=== PATIENT | female | born 1945 | race Caucasian/White ===

== ENCOUNTER → 2021-06-22 09:13 | Outpatient (BNVA) | payer MEDICARE, SELFPAY | PROVIDERS: Family Provider Nurse Practitioner Family; PCP Nurse Practitioner Family; Visit Provider Specialist | DX: H49.23 Sixth [abducent] nerve palsy, bilateral (principal) | CPT/HCPCS: 99205 ==

== ENCOUNTER 2021-06-22 10:55 | Outpatient (CLI) | payer MEDICARE, SELFPAY ==
[2021-06-25 23:13] LABS: Acetylcholine Receptor Binding <0.30 nmol/L
[2021-06-26 01:42] LABS: Acetylcholine Receptor Block <15 (<15)
[2021-07-01 17:38] LABS: Acetylcholine Recept Modulatin 4
== END 2021-06-22 10:56 | disposition home or self-care (01) ==
PROVIDERS: PCP Nurse Practitioner Family; Visit Provider Specialist
DX: G70.00 Myasthenia gravis without (acute) exacerbation (principal)
CPT/HCPCS: 83516; 83519

== ENCOUNTER 2021-07-06 16:26 | Outpatient (CLI) | payer MEDICARE, SELFPAY ==
--- NOTE | 2021-07-06 16:45 | MR_ITS ---
WS: [id number] MRI HEAD WITHOUT CONTRAST TECHNIQUE: Sagittal T1, T2 axial, T2 axial FLAIR, axial and coronal T1 images, axial susceptibility w eighted imaging, axial diffusion weighted images, and coronal T2 images were obtained. CLINICAL INFORMATION: G70.00 - Myasthenia gravis without (acute) exacerbation COMPARISON: None. FINDINGS: No evidence of restricted diffusion persistent. Minimal small vessel changes. Mild parenchymal volume loss. Normal posterior fossa. Normal vascular flow voids at the skull base. No extra-axial fluid col lections. No mass or mass effect. Mild mucosal thickening in the ethmoid air cells. Mastoid air cells well aerated. Mild orbital proptosis. Rectus muscles appear within normal limits. No significant rectus muscle thic kening. No hemosiderin on susceptibly weighted images. Normal optic chiasm and pituitary infundibulum . Temporal lobes formations are normal in appearance. Normal cavernous sinuses and Meckel's cave. MR/MR head wo con* [id number] IMPRESSION: 1. No evidence of restricted diffusion to suggest acute ischemia. 2. Minimal small vessel changes with mild parenchymal volume loss. 3. No hemosiderin on susceptibly weighted images. 4. Mild orbital proptosis. Rectus muscles appear within normal limits. 5. Normal optic chiasm and pituitary infundibulum.
== END 2021-07-06 16:27 | disposition home or self-care (01) ==
LOC: RADSHAW 16:27
PROVIDERS: PCP Nurse Practitioner Family; Visit Provider Specialist
DX: G70.00 Myasthenia gravis without (acute) exacerbation (principal)
CPT/HCPCS: 70551

== ENCOUNTER → 2021-07-26 08:32 | Outpatient (BNVA) | payer MEDICARE, SELFPAY | PROVIDERS: PCP Nurse Practitioner Family; Visit Provider Specialist | DX: H49.23 Sixth [abducent] nerve palsy, bilateral (principal) | CPT/HCPCS: 99214 ==

== ENCOUNTER 2021-07-26 10:14 | Outpatient (CLI) | payer MEDICARE, SELFPAY | END 2021-07-26 10:15 | disposition home or self-care (01) | PROVIDERS: PCP Nurse Practitioner Family; Visit Provider Specialist | DX: G70.00 Myasthenia gravis without (acute) exacerbation (principal) | CPT/HCPCS: 83519 ==

== ENCOUNTER 2025-04-04 07:15 | Inpatient (IN) | payer MEDICARE, SELFPAY ==
[2025-04-04] VITALS (15 sets, daily range): BP systolic 146–188; BP diastolic 77–112; PULSE 61–98; RESP 15–21; TEMP 36.4–36.8; O2SAT 88–98; BMI 33.7
--- OUTSIDE RECORDS SUMMARY | 2025-04-04 07:23 | XMS_ITS | Patient Health Record ---
Author Organization [facility] Address [address] [place] [address] Care Team Providers Care Vp Treasurer Name Role Phone [facility] Primary Care Provider [phone] [facility] Unavailable Unavailable Allergies No Known Allergies Results Component Value Reference Range Flag Notes CBC w\ Auto Diff [id number] Reviewed date:01/28/2025 04:46:54 PM Interpretation: Performing Lab: Notes/Report: Diagnosis Description: Essential (primary) hypertension WBC 3.7 4.5-11.0 X10'3 LOW RBC 4.28 4.00-5.20 X10'6 Hgb 12.7 12.0-16.0 G/DL Hct 40.9 36.0-46.0 % MCV 95.6 80.0-100.0 FL MCH 29.7 27.0-31.0 PG MCHC 31.1 31.0-37.0 G/DL Platelet 278 150-400 X10'3 RDW-SD 46.6 35.0-49.0 FL RDW-CV 13.2 12.2-15.6 % MPV 11.0 9.2-12.0 FL Neutro Auto% 39.5 40.0-70.0 % LOW Lymph Auto% 43.1 22.0-44.0 % [place] Auto% 11.4 3.0-7.0 % HI Eos Auto% 4.6 2.0-4.0 % HI Baso Auto% 1.1 0.0-1.0 % HI Imm Gran% .3 .0-.4 % Neutro Abs 1.45 .80-7.70 Absolute Neutrophil Count 1450 NA Lymph Abs 1.58 .10-4.10 [place] Abs .42 .20-1.00 Eos Abs .17 .00-.40 Baso Abs .04 .00-.20 Imm Gran Abs .01 .00-.10 NRBC# .00 .00-.20 X10'3 NRBC% .00 .00-.20 /100 int act WBC's Comprehensive Metabolic Pane l (CMP) 11625 Reviewed date:01/28/2025 04:47:17 PM Interpretation: Performing Lab: Notes/Report: Diagnosis Description: Essential (primary) hypertension Glucose Serum 90 71-110 MG/DL Testing p erformed at [facility], [address] [place] [address] [place] [address]. CLIA ID#: [id number] BUN 20 7-21 MG/DL Creat .64 .51-1.17 MG/DL K-klexbn-m-benzoquinone imine (NAPQI) is a metabolite of acetaminophen, NAPQI concentrations of apparoximately 10 mg/L correlation to toxic levels of acetaminophen demonstrates a greater than or equil to 10% change in results. NAPQI concentrations greater than this may lead to falsely depressed results for patient samples. Use of this assay is not recommended for patients undergoing treatment with phenindione, due to the potential for falsely depressed results. GFR 90.0 NA Calculation pe rformed from GFR calculator provided by the [employer]. Glomerular Filtration rate(GRF) is the best overall index of kidney function. Normal GFR varies according to age,sex, body size, and declines with age. The [employer] recommends using the CKD-EPI Creatinine Equation(2020) to estimate GFR. BUN/Creat Ratio 31.2 12.0-20.0 % HI Total Protein 6.5 5.8-8.0 G/DL Albumin 4.4 3.2-4.8 G/DL Globulin 2.1 2.3-3.5 G/DL LOW Alb/Glob 2.1 0.8-2.2 Calcium 8.9 8.7-10.4 MG/DL Sodium 144 136-145 MMOL/L Potassium 4.4 3.5-5.1 MMOL/L Chloride 107 98-107 MMOL/L CO2 31.7 20.0-31.0 MMOL/L HI Anion Gap 10 5-15 Alk Phos 92 46-116 Bili Total .6 .3-1.2 MG/DL Use of this assay is not recommended for patients undergoing treatment with eltrombopag due to the potential for falsely elevated results. AST/SGOT 26 15-37 UNIT/L ALT/SGPT 24 12-78 UNIT/L Osmo Serum,Calculated 300 280-300 MOSM/KG Hemoglobin A1c 21241 Reviewed date:01/28/2025 04:46:31 PM Interpretation: Performing Lab: Notes/Report: Diagnosis Description: Other care home (current) drug therapy Hgb A1c 5.4 3.8-6.4 % Interpretation Of Hgb A1c: 4.5-6.2 % nondiabetics. >7.0 % diabetics. EAG 108 NA Estimated Aver age Glucose(EAG). Lipid Panel Reflex DLDL 8004 1, 73191 Reviewed date:01/28/2025 04:47:03 PM Interpretation: Performing Lab: Notes/Report: Diagnosis Description: Mixed hyperlipidemia Trig 113 NA 10-14 yr 37-131 10-14 yr 32-125 5-9 yr 30-101 Desirable <150 Adults: >20yrs 0-4 yr 34-112 Classification Guidelines:Triglycerides 15-19 yr 39-132 Children: Male Very high >=500 0-4 yr 22-99 High 200-499 5-9 yr 32-105 Borderline High 150-199 15-19 yr 37-148 Children: Female Chol 172 <=200 MG/DL HDL 51 39-96 MG/DL Male: 5-9y 36-73 Reference Ranges:HDL >=20y 40-59 15-19y 30-63 10-14y 37-74 >=20y 40-59 Female: 10-14y 37-70 15-19y 35-74 5-9y 38-75 CH/HDL 3.4 0.0-4.9 RATIO LDL 99 0-130 MG/DL LDL result is inaccurate , if Trig is >400 mg/dl. See DLDL result. Thyroid Stimulating Hormone (TSH) 00251 Reviewed date:01/28/2025 04:46:19 PM Interpretation: Performing Lab: Notes/Report: Diagnosis Description: Encounter for screening for other suspected endocrine disorder TSH 1.136 .358-3.740 MlU/ML Reason For Referral No Information Medications Medication SIG (Take, Route, Frequency, Duration) Notes Start Date End Date Status Zinc 50 MG Tablet 1 tablet Orally Once a day Not-Taking Biotin 5 MG Capsule 1 capsule Orally Onc e a day Active Meclizine HCl 25 MG Tablet 1/2 to 1 tab Orally every 12 hrs prn dizzy; Duration: 30 days Not-Taking Olmesartan Medoxomil 40 MG Tablet TAKE ONE TABLET BY MOUTH ONCE a DAY; Duration: 90 days Active Wpaavoip-Oehfixwen-XH 3.5-78399-8 Suspension 4 drops into affected ear Otic Three times a day; Duration: 10 days Not-Takin g Probiotic 1-250 BILLION-MG Capsule as directed Orally Act soren Escitalopram Oxalate 10 MG Tablet 1 tablet Orally Once a day for anxiety; Duration: 30 days 03/13/2025 Active Triamterene-HCTZ 37.5-25 MG Tablet 1/2 to 1 tab Orally once a day day prn swelling; Duration: 90 days Active Magnesium 250 MG Tablet 1 tablet with a meal Orally Once a day Active Pantoprazole Sodium 40 mg Tablet Delayed Release TAKE ONE TABLET BY MOUTH ONCE DAILY; Duration: 90 Active Atorvastatin Calcium 20 mg Tablet TAKE ONE TABLET BY MOUTH ONCE DAILY; Duration: 90 Active PreserVision AREDS 2 - Capsule as directed Orally twice a day Active Aspirin Adult Low Dose 81 MG Tablet Delayed Release 1 tablet Orally Once a day Active Immunizations Vaccine Route Administration Date Status Comme nts Tdap IM Intramuscular 07/04/2024 Administered suppli ed by vaxcare/pt tolerated well/instructed to wait 20 min Social History Tobacco Use: Social History Observation Description Date Details (start date - stop date) Never Smoker NA - NA Social History Depression Screening Social Info Question Answer Notes depression screening findings Findings Negative (0 -4) PHQ-9 Little interest or p susie in doing things Not at all Feeling down, depressed, or hopeless Not at all Trouble falling or staying asleep, or sleeping t oo much Not at all Feeling tired or having little energy Not at all Poor appetite or overeating Not at all Feeling bad about yourself, or that you are a failure, or have let yourself or your family down Not at all Trouble concentrating on thi ngs, such as reading the newspaper or watching television Not at all Moving or speaking so slowly that other people could have noticed. Or the opposite ? being so fidgety or restless that you have been moving around a lot more than usual Not at all Thoughts that you would be b elis off , or of hurting yourself in some way Not at all Total Score 0 Drugs/Alcohol: Social Info Question Answer Notes Alcohol Screen (Audit-C) Did you have a drink containing alcohol in the past year? No Points 0 Interpretation Negative Tobacco Use: Social Info Question Answer Notes xTobacco Use/Smoking Are you a nonsmoker Section Notes: 12-12-22 PHQ9 Depression screen completed 07/04/2024 score 0 Depression screen completed 01/25/2024 score 0 Depression screen completed 07/04/2024 score 0 Depression screen completed 07/04/2024 score 0, PHQ9 02/27/2025 12-12-22 PHQ9 12-12-22 PHQ9 Problems Problem Type SNOMED Code ICD Code Onset Dates Problem Status W/U Status Risk Notes Problem Mixed hyperlipidemia (437499731) Mixed hyperlipidemia (E78.2) Active confirmed Problem Essential hypertension (64550724) Essential (primary) hypertension (I10) Active confirmed Problem Gastro-esophageal reflux disease without esophagitis (204863576) Gastro-esophageal reflux disease without esophagitis (K21.9) Active confirmed Problem Sinusitis (30412836) Sinusitis (J32.9) Active confirmed Problem Thyroid disorder screening (832899007) Thyroid disorder screening (Z13.29) Active confirmed Problem Leukopenia (64298607) Leukopenia (D72.819) Active confirmed Problem Osteoarthritis (552369484) Osteoarthritis (M19.90) Active confirmed Problem Gastroesophageal reflux disease (053826499) GERD (gastroesophageal reflux disease) (K21.9) Active confirmed Problem Adult health examination (185621748) Encounter for annual wellness visit (AWV) in Medicare patient (Z00.00) Active confirmed Vital Signs Heart Rate 75 /min 02/27/2025 Temperature 97.7 degrees Fahrenheit 02/27/2025 Respiratory Rate 20 /min 02/27/2025 Height-cm 167.64 cm 02/27/2025 Oximetry 98 % 02/27/2025 Blood pressure diastolic 85 mm Hg 02/27/2025 Weight-kg 80.74 kg 02/27/2025 Height 66 in 02/27/2025 Blood pressure systolic 162 mm Hg 02/27/2025 Weight 178 lbs 02/27/2025 BMI 28.73 kg/m2 02/27/2025 Encounters Encounter Location Date Provider Diagnosis [facility] [address] [address] [facility] for [facility] annual wellness exam Z00.00 ; Need for tetanus, diphtheria, and acellular pertussis (Tdap) vaccine Z23 ; Osteoarthritis M19.90 ; Finger pain, right M79.644 ; Lumbar pain M54.50 ; Essential (primary) hypertension I10 ; Encounter for immunization Z23 and Encounter for administration of vaccine Z23 [facility] [address] [address] 01/27/2025 [facility] Essential (primary) hypertension I10 ; Mixed hyperlipidemia E78.2 ; Thyroid disorder screening Z13.29 and Drug therapy continued Z79.899 [facility] [address] [address] 02/27/2025 [facility] Leukopenia D72.819 ; Essential (primary) hypertension I10 and Depression screen Z13.31 [facility] [address] [address] 03/13/2025 [facility] Assessments Encounter Date Diagnosis (ICD Code) Assessment Notes Treatment Notes Treatment Clinical Notes Section Notes 07/04/2024 Encounter for Medicare annual wellness exam (ICD-10 - Z00.00) see eval Diagnosis reconciliation performed and verified as listed in Assessments. 07/04/2024 Need for tetanus, diphtheria, and acellular pertussis (Tdap) vaccine (ICD-10 - Z23) tdap Diagnosis reconciliation performed and verified as listed in Assessments. 01/27/2025 Mixed hyperlipidemia (ICD-10 - E78.2) continue meds lipids 01/27/2025 Essential (primary) hypertension (ICD-10 - I10) olmesartan 40 mg monitor bp cbc cmp 02/27/2025 Leukopenia (ICD-10 - D72.819) recheck 2 weeks 02/27/2025 Essential (primary) hypertension (ICD-10 - I10) continue meds 02/27/2025 Depression screen (ICD-10 - Z13.31) 01/27/2025 Thyroid disorder screening (ICD-10 - Z13.29) tsh 07/04/2024 Osteoarthritis (ICD-10 - M19.90) ibuprofen tylenol Diagnosis reconciliation performed and verified as listed in Assessments. 07/04/2024 Finger pain, right (ICD-10 - M79.644) Diagnosis reconciliation performed and verified as listed in Assessments. 01/27/2025 Drug therapy continued (ICD-10 - Z79.899) ha1c 07/04/2024 Lumbar pain (ICD-10 - M54.50) tramadol Diagnosis reconciliation performed and verified as listed in Assessments. 07/04/2024 Essential (primary) hypertension (ICD-10 - I10) Diagnosis reconciliation performed and verified as listed in Assessments. 07/04/2024 Encounter for immunization (ICD-10 - Z23) [facility] Diagnosis reconciliation performed and verified as listed in Assessments. 07/04/2024 Encounter for administration of vaccine (ICD-10 - Z23) Diagnosis reconciliation performed and verified as listed in Assessments. 07/04/2024 Other Questions asked and answered; discharged to home. Give Flu vaccine as directed per provider Diagnosis reconciliation performed and verified as listed in Assessments. 01/27/2025 Other Questions asked and answered; discharged to home. Venipuncture: Performed by: Karolina JOHN Attempts: x1 Location:LAC Needle gauge: 21g Patient tolerated well. 02/27/2025 Other Questions asked and answered; discharged to home. Plan Of Treatment Next Appt Details Provider Name:Suzy Johnson, 05/02/2025 10:20:00 AM, [address] [place] [address], [id number], Insurance Providers Payer Name Payer Address Payer Phone Subscriber Number Group Number Insured Name Patient Relationship to Insured Coverage Start Date Coverage End Date [facility] Medicare Advantage - PPO [address] [address] [place] [address] [id number] Adelaida Thurman Self - patient is the insured Medications Administered Medication Instructions Date of Administration Dosage Notes dexAMETHasone 12/12/2022 8 mg [id number] 423-00 Patient tolerated well Rocephin 12/12/2022 1 g [id number] Patient tolerated well. Medical (General) History Medical History History ICD Code GERD High Blood Pressure Surgical History Surgery Date(Month/Year) cataract removal x2 corneal transplant x2
--- NOTE | 2025-04-04 07:24 | XR_ITS ---
WS: [id number] XR nasal bones min 3V [id number] REASON FOR EXAM: Trauma FINDINGS: The inferior nasal spine is intact. No displacement or fracture of the superior nasal spine identified. XR/XR nasal bones min 3V 43927 IMPRESSION: No acute fracture identified.
--- NOTE | 2025-04-04 07:30 | W.ED.HEATRA ---
HPI - Head Injury General: Chief complaint: Head Injury Stated complaint: fall, nose injury Time Seen by Provider: 04/04/25 07:17 History of Present Illness: 71-year-old female presents emergency room after a fall at home. Patient states she had gotten out of bed to go to the restroom she got dizzy you go. She has pain and deformity of her left wrist and left fourth finger. She has pain in her neck. She told EMS feel like if she moves her neck she was going to pass out. She denies any history of previous stroke or AL. No history of any valvular disease disease or history hypertension. Did not take any of her medications today. She has no chest pain at this time. Associated symptoms: Deny neck pain Related Data Home Medications ?Medication ?Instructions ?Recorded ?Confirmed Saccharomyces boulardii 250 mg 250 mg PO BID 06/22/21 04/04/25 capsule (Daily Probiotic (S. boulardii)) aspirin 81 mg tablet,delayed 81 mg PO DAILY 06/22/21 04/04/25 release (Adult Low Dose Aspirin) atorvastatin 20 mg tablet 20 mg PO DAILY 06/22/21 04/04/25 biotin 5 mg capsule 5 mg PO DAILY 06/22/21 04/04/25 vitamins A,C,C-lzfu-fmedqw 4,296 1 cap PO BID 06/22/21 04/04/25 mcg-226 mg-90 mg capsule (PreserVision AREDS) escitalopram oxalate 10 mg tablet 10 mg PO DAILY 04/04/25 04/04/25 olmesartan 40 mg tablet 40 mg PO DAILY 04/04/25 04/04/25 pantoprazole 40 mg tablet,delayed 40 mg PO DAILY 04/04/25 04/04/25 release Allergies Allergy/AdvReac Type Severity Reaction Status Date / Time No Known Allergies Allergy Verified 07/26/21 09:11 Review of Systems Const: Denies: fever(s) or chills Card: Denies: chest pain Resp: Denies: dyspnea GI: Denies: abdominal pain : Denies: dysuria, urinary frequency or urinary urgency Musc: Denies: neck pain or back pain Skin/Breast: Denies: rash PFSH ED PFSH: Medical History (Updated 04/04/25 @ 15:00 by Benji Kennedy DO) History of myasthenia gravis Surgical History (Updated 04/04/25 @ 12:35 by Dax Lopez MD) Corneal transplant status Social History (Updated 04/04/25 @ 12:35 by Dax Lopez MD) Smoking and tobacco/nicotine status: never used tobacco/nicotine Alcohol intake: never Substance/Drug Use: never Physical Exam Const: COMMON NORMALS: no acute distress GENERAL APPEARANCE: cooperative and comfortable ORIENTATION/CONSCIOUSNESS: Yes awake, Yes oriented to person, Yes oriented to place and Yes oriented to time HENMT: COMMON NORMALS: normocephalic and hearing grossly normal bilaterally HEAD & SCALP: normocephalic OTHER: Abrasion on the bridge of the nose no deformity Resp: COMMON NORMALS: normal respiratory effort, No retractions, No use of accessory muscles and clear to auscultation bilaterally AUSCULTATION: clear to auscultation bilaterally Cardio: COMMON NORMALS: regular rate, regular rhythm and No murmurs present (Cardio) RATE: regular rate RHYTHM: regular rhythm GI: COMMON NORMALS: Soft to palpation and No hepatosplenomegaly present AUSCULTATION: Yes normoactive bowel sounds PALPATION: Yes Soft to palpation, No Tenderness to palpation present (GI), No Guarding due to palpation present (GI) and Yes No hepatosplenomegaly present Extremity: COMMON NORMALS: normal to inspection, capillary refill normal, no clubbing, cyanosis or edema, no calf tenderness and no pedal edema OTHER: Deformity of the left wrist left fourth finger. There is a ring in place on the left fourth finger. There is increased swelling with the ring is causing some constriction Neuro: SENSORIUM/ORIENTATION: Yes oriented to person, Yes oriented to place and Yes oriented to time Skin: COMMON NORMALS: no rashes or lesions noted GENERAL SKIN EXAM: no rashes or lesions noted Procedures Orthopedic Joint Reduction Joint #1: Side: left Joint Reduction Location: finger Technique used: traction/counter-traction Post-reduction neuro exam: intact Post-reduction vascular: intact Post Reduction X-Ray Obtained: Yes Post Reduction X-Ray Results: reduced Additional Comments: Harshad tape fingers for support postreduction films shows a possible minuscule avulsion fracture per radiology. Course Vital Signs: Vital signs: Vital Signs Temperature 97.6 F 04/04/25 12:19 Pulse Rate 76 04/04/25 12:19 Respiratory Rate 17 04/04/25 12:19 Blood Pressure 165/112 04/04/25 12:19 Pulse Oximetry 96 04/04/25 12:19 Oxygen Delivery Me thod Room Air 04/04/25 13:38 MDM - Head Injury Medcial Decision Making CT head was negative there is nondisplaced nasal bone fracture reduce the finger dislocation there is a minuscule possible avulsion fracture. We are setting patient up to further evaluate her and she had another syncopal episode just from sitting up. She also noted to be a little bit hypoxic at times. CT of the chest is negative CTA head and neck did not show any significant stenosis. On auscultation she did not have any murmur heard in the heart. Will go ahead and admit the patient for syncope discussed with hospitalist orders written. Troponin so far negative EKG does not show any acute changes Medical Records I reviewed the patient's medical records. Lab Data I reviewed the patient's lab results. 04/04/25 10:21 04/04/25 10:21 Radiology Impressions Nasal Bones X-Ray 04/04/25 07:24 IMPRESSION: No acute fracture identified. Cervical Spine CT 04/04/25 07:34 IMPRESSION: No evidence of acute fracture or dislocation. Wrist X-Ray 04/04/25 07:34 IMPRESSION: Probable left wrist fracture as above. Head CT 04/04/25 07:35 IMPRESSION: 1. No evidence of intracranial hemorrhage or mass effect. 2. Tiny amount of irregularity anterior inferior nasal bones with soft tissue edema. Nondisplaced RIGHT nasal bone fracture. Recommend correlation for area of trauma. 3. No acute intracranial findings. Hand X-Ray 04/04/25 08:58 IMPRESSION: Shinto of normal alignment. Minuscule mild avulsion injury. Head/Neck CTA 04/04/25 08:58 IMPRESSION: 1. No significant cervical ICA stenosis. 2. Vertebral arteries are patent. Tiny basilar artery with anterior dominant circulation. Normal vascularity to the SPECIAL CRIMES INVESTIGATOR territory. 3. Persistent LEFT [employer]IM[employer] INVESTIGATOR. 4. No evidence of intracranial flow-limiting stenosis. Chest CTA 04/04/25 10:43 IMPRESSION: No pulmonary emboli. No other acute pulmonary parenchymal or pleural abnormality. Chest X-Ray 04/04/25 10:46 IMPRESSION: No acute lung or pleural abnormality. Masslike presumed mediastinal abnormality as above. Laboratory Results WBC 7.48 10^3/uL (3.29-11.43) 04/04/25 10:21 RBC 4.38 10^6/uL (3.85-5.65) 04/04/25 10:21 Hgb 13.10 g/dL (11.27-16.99) 04/04/25 10:21 Hct 40.1 % (36-47) 04/04/25 10:21 MCV 91.6 fl (85-98) 04/04/25 10:21 MCH 29.9 pg (27-33) 04/04/25 10:21 MCHC 32.7 g/dL (30-55) 04/04/25 10:21 RDW 12.7 % (12.1-15.1) 04/04/25 10:21 Plt Count 234 10^3/cmm (157-399) 04/04/25 10:21 MPV 10.4 fL (7.4-10.4) 04/04/25 10:21 Neut % (Auto) 71.1 % 04/04/25 10:21 Lymph % (Auto) 21.7 % 04/04/25 10:21 [place] % (Auto) 5.7 % 04/04/25 10:21 Eos % (Auto) 0.5 % 04/04/25 10:21 Baso % (Auto) 0.5 % 04/04/25 10:21 Neut # (Auto) 5.31 10^3/uL (1.8-7.7) 04/04/25 10:21 Lymph # (Auto) 1.6 10^3/uL (0.8-4.8) 04/04/25 10:21 [place] # (Auto) 0.4 10^3/uL (0.2-0.9) 04/04/25 10:21 Eos # (Auto) 0.0 10^3/uL (0.0-0.8) 04/04/25 10:21 Baso # (Auto) 0.0 10^3/uL (0.0-0.1) 04/04/25 10:21 Nucleated RBC % (auto) 0 % 04/04/25 10:21 Nucleated RBCs # 0.0 /100WBC 04/04/25 10:21 Sodium 141 mmol/L (136-145) 04/04/25 10:21 Potassium 4.2 mmol/L (3.5-5.1) 04/04/25 10:21 Chloride 101 mmol/L (98-107) 04/04/25 10:21 Carbon Dioxide 27 mmol/L (22-29) 04/04/25 10:21 Anion Gap 17.2 (5-19) 04/04/25 10:21 BUN 18 mg/dL (8-23) 04/04/25 10:21 Creatinine 0.5 mg/dL (0.5-0.9) 04/04/25 10:21 GFR Calculation Not Reportable 04/04/25 10:21 Glucose 112 mg/dL (65-115) 04/04/25 10:21 Estimat Average Glucose 126 04/04/25 10:21 Hemoglobin A1c 6.0 % (4.0-6.0) 04/04/25 10:21 Calculated Osmolality 295 mOsm/kg (285-295) 04/04/25 10:21 Lactic Acid 1.1 mmol/L (0.5-2.2) 04/04/25 10:21 Calcium 9.2 mg/dL (8.5-10.5) 04/04/25 10:21 Total Bilirubin 0.6 mg/dL (0.15-1.2) 04/04/25 10:21 AST 25 U/L (0-32) 04/04/25 10:21 ALT 23 U/L (0-33) 04/04/25 10:21 Alkaline Phosphatase 102 U/L (35-105) 04/04/25 10:21 Troponin T Baseline < 6 ng/L (0-10) 04/04/25 10:21 Total Protein 6.7 g/dL (6.6-8.7) 04/04/25 10:21 Albumin 4.2 g/dL (3.5-5.2) 04/04/25 10:21 Globulin 2.5 g/dL (1.3-4.6) 04/04/25 10:21 Triglycerides 114 mg/dL (0-150) 04/04/25 10:21 Cholesterol 197 mg/dL (0-200) 04/04/25 10:21 LDL Cholesterol, Calc 125 mg/dL (50-129) 04/04/25 10:21 HDL Cholesterol 49 mg/dL (60-100) L 04/04/25 10:21 LDL/HDL Ratio 2.55 RATIO (0.00-3.22) 04/04/25 10:21 Cholesterol/HDL Ratio 4.02 mg/dL (0.0-4.40) 04/04/25 10:21 Procalcitonin 0.04 ng/mL (0-0.5) 04/04/25 10:21 TSH 1.78 uIU/mL (0.27-4.20) 04/04/25 10:21 All radiology interpretation(s) finalized by discharge EKG Data EKG 1: Interpretation: 718 2025-07-01. EKG sinus rhythm rate of 65 though acute EKG changes noted no ST elevation. MD 168 QTc 425. No previous EKG to compare EKG 2: Interpretation: EKG 04/04/2025 1312 sinus rhythm no acute ST changes noted rate of 80 MD interval 185 QTc 440 no change from EKG earlier same day Discharge Plan Discharge Patient Disposition: Admitted As Inpatient Admit Provider: Dax Lopez Clinical Impression: Syncopal episodes Condition: Stable Coding Level of Care Code ED Nailer Operator for Chg Patsy
--- NOTE | 2025-04-04 07:34 | CT_ITS ---
WS: [id number] CT CERVICAL TRAUMA TECHNIQUE: Noncontrast CT of the cervical spine with coronal and sagittal reformatted images. CLINICAL INFORMATION: Trauma COMPARISON: None. DLP: 1391.[address] scans at [facility] use at least one of these dose optimization techniques: automated exposure control; mA and/or kV adjustment per patient size (includes targeted exams where dose is matched to clinical indication); or iterative reconstruction. FINDINGS: Straightening of the normal cervical lordosis. Normal craniocervical junction. Normal C1-C2 articulation. Dens is normal in appearance. Normal occipital condyles. No high-grade spinal canal narrowing. Normal C1 ring. No evidence of acute fracture or dislocation. Normal prevertebral soft tissues. Mastoids air cells are well aerated. CT/CT cervical spin wo con* [id number] IMPRESSION: No evidence of acute fracture or dislocation.
--- NOTE | 2025-04-04 07:34 | XR_ITS ---
WS: [email or web address] XR wrist LT min 3V* [id number] REASON FOR EXAM: Trauma FINDINGS: Probable occult nondisplaced transverse fracture through the distal radial metaphysis with extension into the medial radial articular joint space. XR/XR wrist LT min 3V* [id number] IMPRESSION: Probable left wrist fracture as above.
--- NOTE | 2025-04-04 07:34 | XR_ITS ---
WS: [email or web address] XR hand LT min 3V* [id number] REASON FOR EXAM: Trauma FINDINGS: Dislocation of the proximal interphalangeal joint of the fourth finger. Middle phalange displaced dorsally. No definite fracture. XR/XR hand LT min 3V* [id number] IMPRESSION: Fourth finger dislocation as above.
--- NOTE | 2025-04-04 07:35 | CT_ITS ---
WS: [id number] CT HEAD TECHNIQUE: Noncontrast CT of the head obtained from the skullbase to the vertex. CLINICAL INFORMATION: Trauma COMPARISON: None. DLP: 1391.[address] scans at [facility] use at least one of these dose optimization techniques: automated exposure control; mA and/or kV adjustment per patient size (includes targeted exams where dose is matched to clinical indication); or iterative reconstruction. FINDINGS: No evidence of intracranial hemorrhage or mass effect. Ventricular system and basal cisterns are patent. Mild small vessel changes with mild parenchymal volume loss. No extra-axial fluid collections. No evidence of mass or mass effect. Normal cullen-white differentiation. Tiny amount of irregularity with suspected nondisplaced fractures anterior inferior nasal bones. Nondisplaced RIGHT nasal bone fracture. Irregularity LEFT inferior nasal bones. Recommend correlation with area of trauma. There is soft tissue edema in this area. Paranasal sinuses and mastoid air cells are well aerated. Soft tissue edema overlying the inferior frontal calvarium. CT/CT head wo con* [id number] IMPRESSION: 1. No evidence of intracranial hemorrhage or mass effect. 2. Tiny amount of irregularity anterior inferior nasal bones with soft tissue edema. Nondisplaced RIGHT nasal bone fracture. Recommend correlation for area o f trauma. 3. No acute intracranial findings.
--- NOTE | 2025-04-04 08:33 | PC.NURSE ---
Used the ring cutters to remove the wedding band from patient's L ring finger.
--- NOTE | 2025-04-04 08:58 | XR_ITS ---
WS: [email or web address] XR hand LT min 3V* [id number] REASON FOR EXAM: Postreduction FINDINGS: Normal anatomic alignment has been restored to the PIP joint of the fourth finger. Minuscule bone fragment avulsion from the head of the fourth metacarpal and base of the fourth proximal phalanx. XR/XR hand LT min 3V* [id number] IMPRESSION: Shinto of normal alignment. Minuscule mild avulsion injury.
--- NOTE | 2025-04-04 08:58 | CT_ITS ---
WS: [id number] CTA HEAD AND NECK TECHNIQUE: Contrast enhanced CTA of the head and neck with coronal and sagittal reformatted images and maximum intensity projection (MIP) images. NASCET criteria utilized. CLINICAL INFORMATION: Syncope COMPARISON: None. DLP: 431.[address] scans at [facility] use at least one of these dose optimization techniques: automated exposure control; mA and/or kV adjustment per patient size (includes targeted exams where dose is matched to clinical indication); or iterative reconstruction. FINDINGS: RIGHT: No significant RIGHT ICA stenosis. Retropharyngeal course of the RIGHT cervical ICA. RIGHT ICA is patent to the skull base. LEFT: Tortuous proximal LEFT common carotid artery which is patent. No significant LEFT ICA stenosis. LEFT ICA is patent to the skull base. Codominant and patent vertebral arteries bilaterally. Proximal basilar artery is tiny but patent. Anterior dominant circulation. Persistent LEFT LOCAL DELIVERY DRIVER. Robust RIGHT posterior communicating artery with tiny RIGHT P1 segment. Normal vascularity to the LOCAL DELIVERY DRIVER territory bilaterally. Both ICAs are patent at the skull base. Minimal cavernous carotid calcification. Normal vascularity to the MELIA territory with azygos MELIA. Hypoplastic LEFT A1 segment. Normal vascularity to the MCA territory bilaterally. No evidence of proximal flow-limiting stenosis. Lung apices are well aerated. Aortic arch calcification. Proximal subclavian arteries are patent. CT/CT angio headneck* [id number] IMPRESSION: 1. No significant cervical ICA stenosis. 2. Vertebral arteries are patent. Tiny basilar artery with anterior dominant c irculation. Normal vascularity to the LOCAL DELIVERY DRIVER territory. 3. Persistent LEFT LOCAL DELIVERY DRIVER. 4. No evidence of intracranial flow-limiting stenosis.
[2025-04-04] MEDS: ondansetron 2 mg/ML SDV 2 mL 4 MG IVP ×2 (10:20→19:33)
--- NOTE | 2025-04-04 10:29 | ECG_ITS ---
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 Measurements Intervals [place] Rate: 65 P: 57 SC: 168 QRS: -24 QRSD: 100 T: 22 QT: 406 QTc: 425 Interpretive Statements SINUS RHYTHM LOW QRS VOLTAGE IN PRECORDIAL LEADS [QRS DEFLECTION < 1.0 mV IN CHEST LEADS] POSSIBLE ANTERIOR MYOCARDIAL INFARCTION , OF INDETERMINATE AGE [30 ms Q WAVE IN V3/V4, OR R < 0.2 mV IN V4] INTERPRETATION BASED ON A DEFAULT AGE OF 40 YEARS No previous ECG available for comparison Electronically Signed On 04-05-2025 14:10:55 CDT by Ashely Garcia M.D. [id number]
[2025-04-04 10:42] LABS: Hematocrit 40.1 % (36-47); Hemoglobin 13.10 g/dL (11.27-16.99); Mean Corpuscular HGB Conc 32.7 g/dL (30-55); Mean Corpuscular Hemoglobin 29.9 pg (27-33); Mean Corpuscular Volume 91.6 fl (85-98); Nucleated Red Blood Cells % 0 %; Platelet Count 234 10^3/cmm (157-399); Red Blood Count 4.38 10^6/uL (3.85-5.65); White Blood Count 7.48 10^3/uL (3.29-11.43)
--- NOTE | 2025-04-04 10:43 | CT_ITS ---
WS: [email or web address] CT angio chest PE protcl [id number] REASON FOR EXAM: Syncope hypoxia TECHNIQUE: Coronal and sagittal 2-D and MIP reformations. IV CONTRAST ADMINISTERED: 100 mL of Omnipaque 350: After the intravenous administration of contrast multiple thin section axial images were obtained through the chest. Coronal and sagittal reconstructions. TOTAL EXAM DLP: 388.[address] scans at [facility] use at least one of these dose optimization techniques: automated exposure control; mA and/or kV adjustment per patient size (includes targeted exams where dose is matched to clinical indication); or iterative reconstruction. FINDINGS: No pulmonary emboli. Moderate tortuosity and ectasia of the thoracic aorta with calcified plaque. Maximum diameter of the ascending aorta 3.5 cm. Maximum diameter of the descending thoracic aorta 2.5 cm. Hiatal hernia. Combination of the hiatal hernia and the tortuous ectatic thoracic aorta at the esophageal hiatus explains the density seen on the chest x-ray. Small old reactive nodes in both hilar regions and the mediastinum. No significant adenopathy. No lung mass or significant lung nodule. Areas of atelectasis in both lower lobes. No definite acute pulmonary parenchymal abnormality. No pleural effusion. Old compression deformity of T6 with moderate dorsal kyphosis of the thoracic spine. Significant degenerative spondylosis in the mid and lower thoracic spine. CT/CT angio chest PE protcl [id number] IMPRESSION: No pulmonary emboli. No other acute pulmonary parenchymal or pleural abnormality.
--- NOTE | 2025-04-04 10:46 | XR_ITS ---
WS: [email or web address] XR chest 1V portable [id number] REASON FOR EXAM: Low O2 sat syncope FINDINGS: Moderate tortuosity and ectasia of the thoracic aorta. The heart is mildly enlarged. There is no acute pulmonary parenchymal or pleural abnormality. There is a masslike density projected over the lower mediastinum of unknown etiology. This should be resolved with the scheduled CT scan of the chest. XR/XR chest 1V portable [id number] IMPRESSION: No acute lung or pleural abnormality. Masslike presumed mediastinal abnormality as above.
[2025-04-04 11:03] LABS: Alanine Aminotransferase 23 U/L (0-33); Albumin Level 4.2 g/dL (3.5-5.2); Alkaline Phosphatase 102 U/L (35-105); Anion Gap 17.2 (5-19); Aspartate Amino Transferase 25 U/L (0-32); Blood Urea Nitrogen 18 mg/dL (8-23); Calcium 9.2 mg/dL (8.5-10.5); Carbon Dioxide 27 mmol/L (22-29); Chloride 101 mmol/L (98-107); Creatinine Clr Calc Pharmacy 53.6958; Globulin 2.5 g/dL (1.3-4.6); Glucose 112 mg/dL (65-115); Osmolality Calculated 295 mOsm/kg (285-295); Potassium 4.2 mmol/L (3.5-5.1); Sodium 141 mmol/L (136-145); Total Protein 6.7 g/dL (6.6-8.7)
[2025-04-04 11:04] LABS: Troponin(5th) Baseline < 6 ng/L (0-10)
[2025-04-04] MEDS: iohexol 350 mg/mL 500 mL Btl (per mL) IV ×2 (11:56→11:57)
--- NOTE | 2025-04-04 12:24 | PM.HP ---
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 Patient tells me that she lives at home with her , who has Alzheimer's disease, and she takes care of him, she tells me that she has a history of benign positional vertigo, she has received the Bob maneuver in the past, but it is really not bothering her recently she has noted recently that she has been more dizzy upon changing position, but nothing so significant that she had to seek medical attention for. She went to bed last night, when she woke up this morning, as she was getting up out of bed, she passed out completely and she fell through the door, landing on her face, she remembers being on the floor, but does not remember the episode well,, she denies any facial droop, no slurring her words, no focal weakness, does report dizziness upon changing her head position, no numbness or tingling, no lack of sensation of her feet, her last known well normal was about 10 PM when she went to bed, here in the emergency room, when nursing staff got her up to the side of the bed, she passed out again, her initial head CT has been within normal limits, she does tell me that recently her primary care provider has been increasing the dose of her olmesartan, from 10 mg up to 40 mg, she has been recently started on Lexapro Review of Systems Const: Denies: fever(s) or chills Card: Reports: lightheadedness and syncope; Denies: chest pain Resp: Denies: dyspnea GI: Denies: abdominal pain : Denies: flank pain Musc: Denies: neck pain Skin/Breast: Denies: rash Neuro: Denies: headache(s) Medications/Allergies Home Medications ?Medication ?Instructions ?Recorded ?Confirmed ?Last Taken ?Type Saccharomyces boulardii 250 mg 250 mg PO BID 06/22/21 04/04/25 04/03/25 History capsule (Daily Probiotic (S. boulardii)) aspirin 81 mg tablet,delayed 81 mg PO DAILY 06/22/21 04/04/25 04/03/25 History release (Adult Low Dose Aspirin) atorvastatin 20 mg tablet 20 mg PO DAILY 06/22/21 04/04/25 04/03/25 History biotin 5 mg capsule 5 mg PO DAILY 06/22/21 04/04/25 04/03/25 History vitamins A,C,C-fdnn-uwuhri 4,296 1 cap PO BID 06/22/21 04/04/25 04/03/25 History mcg-226 mg-90 mg capsule (PreserVision AREDS) escitalopram oxalate 10 mg tablet 10 mg PO DAILY 04/04/25 04/04/25 04/03/25 History olmesartan 40 mg tablet 40 mg PO DAILY 04/04/25 04/04/25 04/03/25 History pantoprazole 40 mg tablet,delayed 40 mg PO DAILY 04/04/25 04/04/25 04/03/25 History release Allergies Allergy/AdvReac Type Severity Reaction Status Date / Time No Known Allergies Allergy Verified 07/26/21 09:11 PFSH Acute PFSH: Medical History (Updated 04/04/25 @ 12:34 by Dax Lopez MD) History of myasthenia gravis Surgical History (Updated 04/04/25 @ 12:35 by Dax Lopez MD) Corneal transplant status Social History (Updated 04/04/25 @ 12:35 by Dax Lopez MD) Smoking and tobacco/nicotine status: never used tobacco/nicotine Alcohol intake: never Substance/Drug Use: never Vitals/I&O/Wt Last Vital Signs Temp 97.8 F 04/04/25 07:16 Pulse 79 04/04/25 11:19 Resp 18 04/04/25 07:16 BP 146/77 04/04/25 11:19 Pulse Ox 93 04/04/25 11:19 O2 Del Method Room Air 04/04/25 10:30 Weight last 48 hrs Weight 78.471 kg Physical Exam Const: COMMON NORMALS: no acute distress and patient oriented x3 ORIENTATION/CONSCIOUSNESS: Yes awake, Yes oriented to person and Yes oriented to place; not oriented to time Eye: COMMON NORMALS: Equal, round and reactive pupils present and EOMs intact bilaterally OTHER: No eye drooping, no recent weakness, no difficulty swallowing Resp: COMMON NORMALS: normal respiratory effort, No retractions, No use of accessory muscles and clear to auscultation bilaterally AUSCULTATION: clear to auscultation bilaterally Cardio: COMMON NORMALS: no JVD, regular rate, regular rhythm, S1 normal heart sound present and S2 normal heart sound present RATE: regular rate RHYTHM: regular rhythm HEART SOUNDS: S1 normal heart sound present and S2 normal heart sound present GI: COMMON NORMALS: Normal to inspection, nondistended, normoactive bowel sounds present, Soft to palpation and non-tender Extremity: COMMON NORMALS: no pedal edema Neuro: COMMON NORMALS: patient oriented x3, CN's II-XII intact bilaterally, moves all extremities and no focal motor deficits Psych: COMMON NORMALS: mental status grossly normal Data 04/04/25 10:21 04/04/25 10:21 A&P Assessment and plan 1. Syncopal episodes: Plan: Syncopal episode CT head - CT/CT head wo con* [id number] IMPRESSION: 1. No evidence of intracranial hemorrhage or mass effect. 2. Tiny amount of irregularity anterior inferior nasal bones with soft tissue edema. Nondisplaced RIGHT nasal bone fracture. Recommend correlation for area of trauma. 3. No acute intracranial findings. - CT head and neck is pending -Cervical neck CT no acute findings - CT angiogram of the chest negative for pulmonary emboli -Differential includes orthostatic hypotension, polypharmacy, posterior circulation stroke, cardiac etiology, myasthenia crisis? Further workup needed - Plan - Aspirin, statin - Allow for permissive hypertension - IV fluids - CRP, Pro-Jefry, TSH - Due to persistent syncopal episodes keep on bedrest - Will check orthostatic vitals once safe -Telemetry monitoring, serial EKGs, serial troponins, cardiac echo - Full code - Lovenox for DVT prophylaxis Nondisplaced RIGHT nasal bone fracture - Conservative intervention Fourth finger dislocation, s/p reduction, by ER provider, currently ceasar ruff - X-ray shows minuscule mild avulsion injury, will discuss with orthopedic service - She will need to follow-up with orthopedic service History of myasthenia gravis?, Not on Mestinon - Will have to clarify with the patient why she is not taking Mestinon PDMP PDMP Reviewed: Not Reviewed Attestations Medical Necessity Statement*: This is a 79-year-old female who requires inpatient admission, greater than 2 midnights, for syncopal episode Diagnoses Syncopal episodes R55
[2025-04-04] MEDS: pantoprazole 40 mg SDV IVP (12:48)
[2025-04-04 12:50] LABS: Estmated Average Glucose 126; Hemoglobin A1C 6.0 % (4.0-6.0)
[2025-04-04 12:57] LABS: Procalcitonin 0.04 ng/mL (0-0.5); Thyroid Stimulating Hormone 1.78 uIU/mL (0.27-4.20)
[2025-04-04 13:08] LABS: Cholesterol 197 mg/dL (0-200); HDL Cholesterol 49 mg/dL (60-100); Triglycerides 114 mg/dL (0-150)
--- NOTE | 2025-04-04 13:12 | ECG_ITS ---
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
[2025-04-04 13:20] LABS: Lactic Sepsis W/Reflex 1.1 mmol/L (0.5-2.2)
[2025-04-04 13:39] LABS: Troponin 5 2HR 7.05 ng/L (0-10); Troponin 5 2HR Delta 1.05001 ABS# (0-10)
[2025-04-04 16:11] LABS: Glucose Urine UA Negative (Normal); Nitrate Urine Positive (Negative)
--- NOTE | 2025-04-04 16:12 | ECG_ITS ---
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
[2025-04-04 16:16] LABS: Add Urine Microscopic? YES
[2025-04-04] MEDS: metoclopramide 5 mg/mL SDV 2 mL IVP ×2 (16:52→23:35)
[2025-04-04 17:00] LABS: Specific Gravity, Urine 1.031 (1.005-1.030)
[2025-04-04 17:15] LABS: Troponin 5 6HR 11.18 ng/L (0-10); Troponin 5 6HR Delta 5.18001 ng/L (0-12)
[2025-04-04] MEDS: morphine 4 mg/mL SDV 1 mL 2 MG IVP ×2 (19:33→23:35)
--- NOTE | 2025-04-04 19:46 | ECG_ITS ---
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 Measurements Intervals [place] Rate: 130 P: -12 DC: 118 QRS: -19 QRSD: 102 T: 35 QT: 308 QTc: 454 Interpretive Statements SINUS TACHYCARDIA WITH SHORT DC INTERVAL POSSIBLE ANTERIOR MYOCARDIAL INFARCTION , PROBABLY OLD [30 ms Q WAVE IN V3/V4, OR R < 0.2 mV IN V4] POSSIBLE INFERIOR MYOCARDIAL INFARCTION , PROBABLY OLD [30 ms Q WAVE IN II/aVF] ABNORMAL RHYTHM ECG Compared to ECG 04/04/2025 16:12:48 Short DC interval now present Myocardial infarct finding now present Sinus rhythm no longer present Electronically Signed On 04-05-2025 00:16:05 CDT by Ashely Garcia M.D. [email or web address] [id number]
[2025-04-04] MEDS: cefTRIAXone 1,000 mg SDV 1000 MG IVP (20:16)
[2025-04-04 20:37] LABS: Lipase 28 U/L (13-60)
[2025-04-05] VITALS (9 sets, daily range): BP systolic 113–142; BP diastolic 65–79; PULSE 73–87; RESP 15–26; TEMP 36.4–37; O2SAT 94–96
[2025-04-05 04:09] LABS: Hematocrit 37.7 % (36-47); Hemoglobin 12.40 g/dL (11.27-16.99); Mean Corpuscular HGB Conc 32.9 g/dL (30-55); Mean Corpuscular Hemoglobin 30.8 pg (27-33); Mean Corpuscular Volume 93.5 fl (85-98); Nucleated Red Blood Cells % 0 %; Platelet Count 233 10^3/cmm (157-399); Red Blood Count 4.03 10^6/uL (3.85-5.65); White Blood Count 10.33 10^3/uL (3.29-11.43)
[2025-04-05 04:33] LABS: Alanine Aminotransferase 19 U/L (0-33); Albumin Level 3.8 g/dL (3.5-5.2); Alkaline Phosphatase 88 U/L (35-105); Anion Gap 15.7 (5-19); Aspartate Amino Transferase 21 U/L (0-32); Blood Urea Nitrogen 17 mg/dL (8-23); Calcium 8.4 mg/dL (8.5-10.5); Carbon Dioxide 24 mmol/L (22-29); Chloride 104 mmol/L (98-107); Creatinine Clr Calc Pharmacy 53.6958; Globulin 2.5 g/dL (1.3-4.6); Glucose 130 mg/dL (65-115); Magnesium 1.9 mg/dL (1.7-2.3); Osmolality Calculated 293 mOsm/kg (285-295); Potassium 3.7 mmol/L (3.5-5.1); Sodium 140 mmol/L (136-145); Total Protein 6.3 g/dL (6.6-8.7)
[2025-04-05] MEDS: morphine 4 mg/mL SDV 1 mL 2 MG IVP (06:08)
[2025-04-05] MEDS: ondansetron 2 mg/ML SDV 2 mL 4 MG IVP (06:08)
--- NOTE | 2025-04-05 13:19 | P.PN_ITS ---
Subjective 2 Subjective: Patient was seen this morning, currently alert oriented x 3, following all commands, she does report dizziness upon changing head position, no nausea, no vomiting, no lightheadedness, no dizziness, she did have episodes of tachycardia during the night, denies a history of atrial fibrillation, did discuss her UTI, Vitals/I&O/Wt Last Vital Signs Temp 97.9 F 04/05/25 12:00 Pulse 73 04/05/25 12:00 Resp 18 04/05/25 12:00 BP 124/65 04/05/25 12:00 Pulse Ox 95 04/05/25 12:00 O2 Del Method Nasal Cannula 04/05/25 04:00 O2 Flow Rate 2 04/05/25 04:00 04/04/25 04/05/25 04/05/25 22:59 06:59 14:59 Intake Total 60 / 60 973.75 / 1033.75 240 / 240 Output Total 1050 / 1050 300 / 1350 Balance -990 / -990 673.75 / -316.25 240 / 240 Weight last 48 hrs Weight 82.01 kg Weight 78.471 kg Weight 78.471 kg Physical Exam 2 Const: COMMON NORMALS: no acute distress and patient oriented x3 Eye: COMMON NORMALS: Equal, round and reactive pupils present PUPIL: Yes Equal, round and reactive pupils present Resp: COMMON NORMALS: normal respiratory effort, No retractions, No use of accessory muscles and clear to auscultation bilaterally AUSCULTATION: clear to auscultation bilaterally Cardio: COMMON NORMALS: regular rate, regular rhythm, S1 normal heart sound present and S2 normal heart sound present RATE: regular rate RHYTHM: r egular rhythm HEART SOUNDS: S1 normal heart sound present and S2 normal heart sound present GI: COMMON NORMALS: Normal to inspection, nondistended, normoactive bowel sounds present and non-tender Extremity: COMMON NORMALS: no pedal edema Neuro: COMMON NORMALS: patient oriented x3, CN's II-XII intact bilaterally and moves all extremities Psych: COMMON NORMALS: mental status grossly normal Data 04/05/25 03:30 04/05/25 03:30 Micro: Microbiology 04/04/25 14:07 Urine Culture - Preliminary Urine,Clean Catch Gram Negative Rods A&P Assessment and plan 1. Syncopal episodes: 2. UTI (urinary tract infection): 3. Atrial fibrillation: Plan: Syncopal episode CT head - CT/CT head wo con* [id number] IMPRESSION: 1. No evidence of intracranial hemorrhage or mass effect. 2. Tiny amount of irregularity anterior inferior nasal bones with soft tissue edema. Nondisplaced RIGHT nasal bone fracture. Recommend correlation for area of trauma. 3. No acute intracranial findings. - CT head and neck no acute findings -Cervical neck CT no acute findings - CT angiogram of the chest negative for pulmonary emboli -Differential includes orthostatic hypotension, polypharmacy, posterior circulation stroke, cardiac etiology, myasthenia crisis? Further workup needed -With patient's episode of atrial fibrillation, dizziness, concerns for posterior circulation stroke is high # However she does have features associate with benign positional vertigo - Plan - Aspirin, statin - Allow for permissive hypertension - IV fluids - CRP, Pro-Jefry, TSH within normal limits - Ambulate with physical therapy, take off bedrest check orthostatic vitals - Check orthostatic vitals -Telemetry monitoring, serial EKGs, serial troponins, cardiac echo - Full code - Lovenox for DVT prophylaxis UTI, IV Rocephin Atrial fibrillation - Reviewed telemetry, patient had a couple episodes of sinus tachycardia during the night, one of the episodes appear to be atrial fibrillation - Her EKG show sinus tachycardia - Heart rates as high as 150 - High suspicious for A-fib - Given her dizziness concerns for possible posterior circulation stroke, associate with atrial fibrillation - For now we will start on therapeutic anticoagulant therapy - Will consider starting her on a beta-ingrid based upon her orthostatic vitals - Continue telemetry monitoring Benign positional vertigo - Has a history of benign positional vertigo - She does report dizziness upon changing head position, I cannot discern any saccadic eye movements - Show her dizziness does have a component of benign positional vertigo - Will have PT evaluate her Nondisplaced RIGHT nasal bone fracture - Conservative intervention Hiatal hernia History of tortuous ectatic thoracic aorta, mass diameter ascending aorta 2.5 cm Fourth finger dislocation, s/p reduction, by ER provider, currently ceasar ruff - X-ray shows minuscule mild avulsion injury, will discuss with orthopedic service - She will need to follow-up with orthopedic service History of myasthenia gravis?, Not on Mestinon - Will have to clarify with the patient why she is not taking Mestinon PDMP PDMP Reviewed: Not Reviewed Attestations 2 Medical Necessity Statement*: Patient requires hospitalization for syncopal episode, atrial fibrillation, UTI, benign positional vertigo Diagnoses Syncopal episodes R55 UTI (urinary tract infection) N39.0 Atrial fibrillation I48.91
--- NOTE | 2025-04-05 15:41 | PC.NURSE ---
During transfer patient turned pallor while trying to go from the chair to the bed. Patient barely tolerated sitting up in the chair today.
--- NOTE | 2025-04-05 17:45 | PC.PT ---
PT eval attempted. Patient near syncope this afternoon. Unsafe for transfer and ambulation currently. Will monitor.
[2025-04-05] MEDS: cefTRIAXone 1,000 mg SDV 1000 MG IVP (21:29)
[2025-04-06] VITALS (7 sets, daily range): BP systolic 128–162; BP diastolic 64–91; PULSE 72–94; RESP 17–29; TEMP 36.4–37.2; O2SAT 89–96
[2025-04-06 03:04] LABS: Hematocrit 36.1 % (36-47); Hemoglobin 11.00 g/dL (11.27-16.99); Mean Corpuscular HGB Conc 30.5 g/dL (30-55); Mean Corpuscular Hemoglobin 29.9 pg (27-33); Mean Corpuscular Volume 98.1 fl (85-98); Nucleated Red Blood Cells % 0 %; Platelet Count 198 10^3/cmm (157-399); Red Blood Count 3.68 10^6/uL (3.85-5.65); White Blood Count 5.80 10^3/uL (3.29-11.43)
[2025-04-06 03:26] LABS: Alanine Aminotransferase 23 U/L (0-33); Albumin Level 3.2 g/dL (3.5-5.2); Alkaline Phosphatase 86 U/L (35-105); Blood Urea Nitrogen 13 mg/dL (8-23); Calcium 8.1 mg/dL (8.5-10.5); Carbon Dioxide 25 mmol/L (22-29); Chloride 108 mmol/L (98-107); Creatinine Clr Calc Pharmacy 54.9910; Globulin 2.1 g/dL (1.3-4.6); Glucose 98 mg/dL (65-115); Magnesium 2.1 mg/dL (1.7-2.3); Osmolality Calculated 294 mOsm/kg (285-295); Sodium 142 mmol/L (136-145); Total Protein 5.3 g/dL (6.6-8.7)
[2025-04-06 03:36] LABS: Anion Gap 13.6 (5-19); Aspartate Amino Transferase 25 U/L (0-32); Potassium 4.6 mmol/L (3.5-5.1)
--- NOTE | 2025-04-06 12:52 | USCV_ITS ---
Adelaida Jain Age: 79 Gender: F : 1945 Exam Date: 04/06/2025 07:35 Ordering Phys: Dax oLpez MD Technologist: Tiburcio Lal Exam Location: [facility] [place] Indication: tachycardia BP: 132 / 70 HR: 73 Rhythm: Sinus Technical Quality: Adequate MEASUREMENTS (Male / Female) Normal Values 2D ECHO LV Diastolic Diameter PLAX 5.1 cm 4.2 - 5.9 / 3.9 - 5.3 cm IVS Diastolic Thickness 1.0 cm 0.6 - 1.0 / 0.6 - 0.9 cm IVS Systolic Thickness 1.4 cm LVPW Diastolic Thickness 1.3 cm 0.6 - 1.0 / 0.6 - 0.9 cm LVPW Systolic Thickness 2.4 cm LVOT Diameter 2.0 cm LV Ejection Fraction 2D Teich 58.6 % LV Ejection Fraction MOD 4C 65.9 % LV Ejection Fraction MOD 2C 73.6 % LV Ejection Fraction 2C AL 74.0 % LA Diameter 3.0 cm RA Systolic Volume 4C AL 32.5 ml RA Systolic Volume 4C MOD 32.6 ml LA Sys Volume AL 43.6 cm cubed LA Sys Volume Index AL 22.9 cm cubed/m squared Aorta at Sinotubular Diameter 2.4 cm IVC Diameter 1.9 cm M-MODE LA Ao Ratio MM 1.4 AV Cusp Separation MM 1.8 cm DOPPLER AV Peak Velocity 141.7 cm/s LVOT Peak Velocity 89.0 cm/s AV Area Cont Eq vti 1.7 cm squared AV Area Cont Eq pk 2.0 cm squared MV Peak Velocity 101.0 cm/s MV Area PHT 4.8 cm squared Mitral E to A Ratio 0.8 TV Peak Velocity 303.3 cm/s TR Peak Velocity 333.0 cm/s TR Peak Gradient 44.4 mmHg TR Mean Velocity 281.0 cm/s TR Mean Gradient 32.9 mmHg TR Velocity Time Integral 108.3 cm PV Peak Velocity 93.7 cm/s RV Ejection Time 0.3 s FINDINGS Left Ventricle Normal left ventricular size and systolic function, EF 70%.no regional wall motion abnormalities. Grade I/IV diastolic dysfunction (abnormal relaxation filling pattern), normal to mildly elevated filling pressures. Right Ventricle The right ventricle is normal in size and function. Right Atrium The right atrium is normal in size. Left Atrium Normal left atrial size. Mitral Valve Trace mitral valve regurgitation. Aortic Valve Trace aortic valve regurgitation. Tricuspid Valve fMild tricuspid valve regurgitation. Estimated pulmonary artery peak systolic pressure 39 mmHg Pulmonic Valve Mild pulmonary valve regurgitation. Pericardium No pericardial effusion. Aorta Normal ascending aorta dimension. IVC The inferior vena cava appears normal. CONCLUSIONS Normal left ventricular size and systolic function, EF 70%. No regional wall motion abnormalities. Grade I/IV diastolic dysfunction (abnormal relaxation filling pattern), normal to mildly elevated filling pressures. Trace mitral valve regurgitation. Trace aortic valve regurgitation. FMild tricuspid valve regurgitation. Estimated pulmonary artery peak systolic pressure 39 mmHg. Mild pulmonary valve regurgitation. There is no pericardial effusion. There are no intracardiac masses. No similar previous studies are available for comparison . Dr Ashely Garcia MD FAC (Electronically Signed) Final Date: 06 April 2025 09:31 S
[2025-04-06] MEDS: pantoprazole 40 mg SDV IVP (13:01)
--- NOTE | 2025-04-06 15:20 | P.PN_ITS ---
Subjective 2 Subjective: Patient was seen this morning, currently alert oriented x 3, following all commands she reports dizziness upon changing head positions, we discussed my suspicions for atrial fibrillation, Vitals/I&O/Wt Last Vital Signs Temp 97.6 F 04/06/25 12:00 Pulse 72 04/06/25 12:50 Resp 29 H 04/06/25 12:00 BP 141/64 04/06/25 12:50 Pulse Ox 95 04/06/25 12:00 O2 Del Method Nasal Cannula 04/06/25 04:00 O2 Flow Rate 2 04/06/25 04:00 04/06/25 04/06/25 04/06/25 06:59 14:59 22:59 Intake Total 948.75 / 2548.75 480 / 480 Output Total 600 / 1150 Balance 348.75 / 1398.75 480 / 480 Weight last 48 hrs Weight 82.508 kg Weight 82.01 kg Physical Exam 2 Const: COMMON NORMALS: no acute distress and patient oriented x3 Eye: COMMON NORMALS: Equal, round and reactive pupils present and EOMs intact bilaterally PUPIL: Yes Equal, round and reactive pupils present Resp: COMMON NORMALS: normal respiratory effort, No retractions, No use of accessory muscles and clear to auscultation bilaterally AUSCULTATION: clear to auscultation bilaterally Cardio: COMMON NORMALS: regular rate, regular rhythm, S1 normal heart sound present and S2 normal heart sound present RATE: regular rate RHYTHM: r egular rhythm HEART SOUNDS: S1 normal heart sound present and S2 normal heart sound present GI: COMMON NORMALS: Normal to inspection, nondistended, normoactive bowel sounds present and non-tender Extremity: COMMON NORMALS: no pedal edema Neuro: COMMON NORMALS: patient oriented x3, CN's II-XII intact bilaterally and moves all extremities Psych: COMMON NORMALS: mental status grossly normal Data 04/06/25 01:55 04/06/25 01:55 Micro: Microbiology 04/04/25 14:07 Urine Culture - Final Urine,Clean Catch Escherichia coli A&P Assessment and plan 1. Syncopal episodes: 2. UTI (urinary tract infection): 3. Atrial fibrillation: Plan: Syncopal episode CT head - CT/CT head wo con* [id number] IMPRESSION: 1. No evidence of intracranial hemorrhage or mass effect. 2. Tiny amount of irregularity anterior inferior nasal bones with soft tissue edema. Nondisplaced RIGHT nasal bone fracture. Recommend correlation for area of trauma. 3. No acute intracranial findings. - CT head and neck no acute findings -Cervical neck CT no acute findings - CT angiogram of the chest negative for pulmonary emboli -Differential includes orthostatic hypotension, polypharmacy, posterior circulation stroke, cardiac etiology, myasthenia crisis? Further workup needed -With patient's episode of atrial fibrillation, dizziness, concerns for posterior circulation stroke is high # However she does have features associate with benign positional vertigo - Plan - Aspirin, statin - Allow for permissive hypertension - IV fluids completed - CRP, Pro-Jefry, TSH within normal limits - Ambulate with physical therapy, take off bedrest check orthostatic vitals - Check orthostatic vitals -Telemetry monitoring, serial EKGs, serial troponins, cardiac echo - Full code - Lovenox for DVT prophylaxis UTI, IV Rocephin Atrial fibrillation - Reviewed telemetry, patient had a couple episodes of sinus tachycardia during the night, one of the episodes appear to be atrial fibrillation - Her EKG show sinus tachycardia - Heart rates as high as 150 - High suspicious for A-fib - Given her dizziness concerns for possible posterior circulation stroke, associate with atrial fibrillation - For now we will start on therapeutic anticoagulant therapy - Will consider starting her on a beta-ingrid based upon her orthostatic vitals - Continue telemetry monitoring Benign positional vertigo - Has a history of benign positional vertigo - She does report dizziness upon changing head position, I cannot discern any saccadic eye movements - Show her dizziness does have a component of benign positional vertigo - Will have PT evaluate her Nondisplaced RIGHT nasal bone fracture - Conservative intervention Hiatal hernia History of tortuous ectatic thoracic aorta, 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91
[2025-04-06] MEDS: cefTRIAXone 1,000 mg SDV 1000 MG IVP (20:00)
[2025-04-07] VITALS: BP 154/80; BP 164/93; BP 176/84; PULSE 75; PULSE 79; PULSE 86; RESP 18; TEMP 36.6; O2SAT 97
[2025-04-07 03:53] VITALS: BP 156/89; PULSE 96; RESP 15; TEMP 36.6; O2SAT 94
[2025-04-07 05:17] LABS: Hematocrit 33.9 % (36-47); Hemoglobin 10.80 g/dL (11.27-16.99); Mean Corpuscular HGB Conc 31.9 g/dL (30-55); Mean Corpuscular Hemoglobin 30.0 pg (27-33); Mean Corpuscular Volume 94.2 fl (85-98); Nucleated Red Blood Cells % 0 %; Platelet Count 179 10^3/cmm (157-399); Red Blood Count 3.60 10^6/uL (3.85-5.65); White Blood Count 4.51 10^3/uL (3.29-11.43)
[2025-04-07 05:34] LABS: Alanine Aminotransferase 36 U/L (0-33); Albumin Level 3.2 g/dL (3.5-5.2); Alkaline Phosphatase 87 U/L (35-105); Anion Gap 11.9 (5-19); Aspartate Amino Transferase 34 U/L (0-32); Blood Urea Nitrogen 10 mg/dL (8-23); Calcium 8.1 mg/dL (8.5-10.5); Carbon Dioxide 27 mmol/L (22-29); Chloride 108 mmol/L (98-107); Creatinine Clr Calc Pharmacy 55.6216; Globulin 2.5 g/dL (1.3-4.6); Glucose 95 mg/dL (65-115); Magnesium 1.9 mg/dL (1.7-2.3); Osmolality Calculated 295 mOsm/kg (285-295); Potassium 3.9 mmol/L (3.5-5.1); Sodium 143 mmol/L (136-145); Total Protein 5.7 g/dL (6.6-8.7)
[2025-04-07 08:00] VITALS: BP 176/63; PULSE 71; RESP 16; TEMP 36.8; O2SAT 95
--- NOTE | 2025-04-07 08:05 | PC.SOCIAL ---
IMM Update Pg. 2 of IMM updated and reviewed with patient, who verbalized understanding. Copy provided.
--- NOTE | 2025-04-07 11:22 | P.DS_ITS ---
Discharge Providers Date of Admission: 04/04/25 10:28 Date of Discharge: April 07, 2025 Attending Provider at Admission: Dax Lopez MD Attending Provider at Discharge: Dax Lopez MD Primary Care Provider: Suzy Johnson APN Diagnoses at Discharge Discharge Diagnosis 1. Syncopal episodes: 2. UTI (urinary tract infection): 3. 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 Patient tells me that she lives at home with her , who has Alzheimer's disease, and she takes care of him, she tells me that she has a history of benign positional vertigo, she has received the Bob maneuver in the past, but it is really not bothering her recently she has noted recently that she has been more dizzy upon changing position, but nothing so significant that she had to seek medical attention for. She went to bed last night, when she woke up this morning, as she was getting up out of bed, she passed out completely and she fell through the door, landing on her face, she remembers being on the floor, but does not remember the episode well,, she denies any facial droop, no slurring her words, no focal weakness, does report dizziness upon changing her head position, no numbness or tingling, no lack of sensation of her feet, her last known well normal was about 10 PM when she went to bed, here in the emergency room, when nursing staff got her up to the side of the bed, she passed out again, her initial head CT has been within normal limits, she does tell me that recently her primary care provider has been increasing the dose of her olmesartan, from 10 mg up to 40 mg, she has been recently started on Lexapro Patient presented to [facility] for syncopal episode, highly suspicious for posterior circulation stroke with episode of atrial fibrillation during hospitalization. During her hospitalization she had an episode of atrial fibrillation reviewed on telemetry monitoring, with patient's complaints of dizziness, patient's fall, highly suspicious for posterior circulation stroke. She was monitored as inpatient, received metoprolol, Eliquis, tolerated it well, no evidence of bleeding. No recurrent episodes of atrial fibrillation, discharged with event monitor with close follow-up with cardiology as outpatient. For concern for posterior circulation stroke, discharged with close follow-up with neurology patient, aspirin, statin, Eliquis, beta-ingrid was advised if she were to have any stroke symptoms immediately call 911. For her UTI she completed antibiotic therapy. She was found to have a fourth finger dislocation s/p reduction, spoke with orthopedic service, recommended continued medical management. For benign positional vertigo, evaluated by PT OT during hospitalization, discharged with follow-up with primary care provider as outpatient. For a history of myasthenia gravis? Patient did have a a history of myasthenia gravis, is not on Mestinon as outpatient. For her nasal bone fracture, conservative management, follow-up with ENT Physical Exam Const: COMMON NORMALS: no acute distress and patient oriented x3 Resp: COMMON NORMALS: normal respiratory effort, No retractions, No use of accessory muscles and clear to auscultation bilaterally AUSCULTATION: clear to auscultation bilaterally Cardio: COMMON NORMALS: regular rate, regular rhythm, S1 normal heart sound present and S2 normal heart sound present RATE: regular rate RHYTHM: regular rhythm HEART SOUNDS: S1 normal heart sound present and S2 normal heart sound present GI: COMMON NORMALS: Normal to inspection, nondistended, normoactive bowel sounds present and non-tender Extremity: COMMON NORMALS: no pedal edema Neuro: COMMON NORMALS: patient oriented x3 Psych: COMMON NORMALS: mental status grossly normal Discharge Data Studies Completed and Pending Completed Studies During Hospitalization Category Date Time Status CT angio chest PE protcl [id number] Stat Cat Scan 04/04/25 10:[address] cervical spin wo con* [id number] Stat Cat Scan 04/04/25 07:[address] head wo con* [id number] Stat Cat Scan 04/04/25 07:35 Completed CTA head neck [CT angio headneck* [id number]] Stat Cat Scan 04/04/25 08:58 Completed XR chest 1V portable [id number] Stat Exams 04/04/25 10:46 Completed XR hand LT min 3V* [id number] Stat Exams 04/04/25 07:34 Completed XR hand LT min 3V* [id number] Stat Exams 04/04/25 08:58 Completed XR nasal bones min 3V [id number] Stat Exams 04/04/25 07:24 Completed XR wrist LT min 3V* [id number] Stat Exams 04/04/25 07:34 Completed CV. echo complete* [id number] Routine Ultrasound 04/06/25 12:52 Completed Radiology Impressions Nasal Bones X-Ray 04/04/25 07:24 IMPRESSION: No acute fracture identified. Cervical Spine CT 04/04/25 07:34 IMPRESSION: No evidence of acute fracture or dislocation. Wrist X-Ray 04/04/25 07:34 IMPRESSION: Probable left wrist fracture as above. Head CT 04/04/25 07:35 IMPRESSION: 1. No evidence of intracranial hemorrhage or mass effect. 2. Tiny amount of irregularity anterior inferior nasal bones with soft tissue edema. Nondisplaced RIGHT nasal bone fracture. Recommend correlation for area of trauma. 3. No acute intracranial findings. Hand X-Ray 04/04/25 08:58 IMPRESSION: Pentecostal of normal alignment. Minuscule mild avulsion injury. Head/Neck CTA 04/04/25 08:58 IMPRESSION: 1. No significant cervical ICA stenosis. 2. Vertebral arteries are patent. Tiny basilar artery with anterior dominant circulation. Normal vascularity to the AUXILIARY POWER EQUIPMENT OPERATOR territory. 3. Persistent LEFT AUXILIARY POWER EQUIPMENT OPERATOR. 4. No evidence of intracranial flow-limiting stenosis. Chest CTA 04/04/25 10:43 IMPRESSION: No pulmonary emboli. No other acute pulmonary parenchymal or pleural abnormality. Chest X-Ray 04/04/25 10:46 IMPRESSION: No acute lung or pleural abnormality. Masslike presumed mediastinal abnormality as above. Laboratory Results WBC 4.51 10^3/uL (3.29-11.43) 04/07/25 05:07 RBC 3.60 10^6/uL (3.85-5.65) L 04/07/25 05:07 Hgb 10.80 g/dL (11.27-16.99) L 04/07/25 05:07 Hct 33.9 % (36-47) L 04/07/25 05:07 MCV 94.2 fl (85-98) 04/07/25 05:07 MCH 30.0 pg (27-33) 04/07/25 05:07 MCHC 31.9 g/dL (30-55) 04/07/25 05:07 RDW 12.8 % (12.1-15.1) 04/07/25 05:07 Plt Count 179 10^3/cmm (157-399) 04/07/25 05:07 MPV 10.1 fL (7.4-10.4) 04/07/25 05:07 Neut % (Auto) 46.6 % 04/07/25 05:07 Lymph % (Auto) 39.2 % 04/07/25 05:07 Casey % (Auto) 9.1 % 04/07/25 05:07 Eos % (Auto) 4.2 % 04/07/25 05:07 Baso % (Auto) 0.7 % 04/07/25 05:07 Neut # (Auto) 2.10 10^3/uL (1.8-7.7) 04/07/25 05:07 Lymph # (Auto) 1.8 10^3/uL (0.8-4.8) 04/07/25 05:07 Casey # (Auto) 0.4 10^3/uL (0.2-0.9) 04/07/25 05:07 Eos # (Auto) 0.2 10^3/uL (0.0-0.8) 04/07/25 05:07 Baso # (Auto) 0.0 10^3/uL (0.0-0.1) 04/07/25 05:07 Nucleated RBC % (auto) 0 % 04/07/25 05:07 Nucleated RBCs # 0.0 /100WBC 04/07/25 05:07 Sodium 143 mmol/L (136-145) 04/07/25 05:07 Potassium 3.9 mmol/L (3.5-5.1) 04/07/25 05:07 Chloride 108 mmol/L (98-107) H 04/07/25 05:07 Carbon Dioxide 27 mmol/L (22-29) 04/07/25 05:07 Anion Gap 11.9 (5-19) 04/07/25 05:07 BUN 10 mg/dL (8-23) 04/07/25 05:07 Creatinine 0.5 mg/dL (0.5-0.9) 04/07/25 05:07 GFR Calculation Not Reportable 04/07/25 05:07 Glucose 95 mg/dL (65-115) 04/07/25 05:07 Estimat Average Glucose 126 04/04/25 10:21 Hemoglobin A1c 6.0 % (4.0-6.0) 04/04/25 10:21 Calculated Osmolality 295 mOsm/kg (285-295) 04/07/25 05:07 Lactic Acid 1.1 mmol/L (0.5-2.2) 04/04/25 10:21 Calcium 8.1 mg/dL (8.5-10.5) L 04/07/25 05:07 Phosphorus 2.7 mg/dL (2.5-4.5) 04/07/25 05:07 Magnesium 1.9 mg/dL (1.7-2.3) 04/07/25 05:07 Total Bilirubin 0.4 mg/dL (0.15-1.2) 04/07/25 05:07 AST 34 U/L (0-32) H 04/07/25 05:07 ALT 36 U/L (0-33) H 04/07/25 05:07 Alkaline Phosphatase 87 U/L (35-105) 04/07/25 05:07 Troponin T Baseline < 6 ng/L (0-10) 04/04/25 10:21 Troponin T 120 Minute 7.05 ng/L (0-10) 04/04/25 13:12 Delta Troponin T 1.40245 ABS# (0-10) 04/04/25 13:12 Troponin T Hi Sens 6Hr 11.18 ng/L (0-10) H 04/04/25 16:10 Troponin T Hi Sens 6Hr Delta 5.46228 ng/L (0-12) 04/04/25 16:10 Total Protein 5.7 g/dL (6.6-8.7) L 04/07/25 05:07 Albumin 3.2 g/dL (3.5-5.2) L 04/07/25 05:07 Globulin 2.5 g/dL (1.3-4.6) 04/07/25 05:07 Triglycerides 114 mg/dL (0-150) 04/04/25 10:21 Cholesterol 197 mg/dL (0-200) 04/04/25 10:21 LDL Cholesterol, Calc 125 mg/dL (50-129) 04/04/25 10:21 HDL Cholesterol 49 mg/dL (60-100) L 04/04/25 10:21 LDL/HDL Ratio 2.55 RATIO (0.00-3.22) 04/04/25 10:21 Cholesterol/HDL Ratio 4.02 mg/dL (0.0-4.40) 04/04/25 10:21 Lipase 28 U/L (13-60) 04/04/25 16:10 Procalcitonin 0.04 ng/mL (0-0.5) 04/04/25 10:21 TSH 1.78 uIU/mL (0.27-4.20) 04/04/25 10:21 Urine Color Yellow (Yellow) 04/04/25 14:07 Urine Appearance Clear (CLEAR) 04/04/25 14:07 Urine pH 7.5 (5-7) 04/04/25 14:07 Ur Specific Hustler 1.031 (1.005-1.030) H 04/04/25 14:07 Urine Protein Negative (Negative) 04/04/25 14:07 Urine Glucose (UA) Negative (Normal) 04/04/25 14:07 Urine Ketones Negative (Negative) 04/04/25 14:07 Urine Blood Negative (Negative) 04/04/25 14:07 Urine Nitrate Positive (Negative) A 04/04/25 14:07 Urine Bilirubin Negative (Negative) 04/04/25 14:07 Urine Urobilinogen 1.0 mg/dL (Negative) 04/04/25 14:07 Ur Leukocyte Esterase Negative (Negative) 04/04/25 14:07 Urine RBC 0-2 /hpf (0-2) 04/04/25 14:07 Urine WBC 0-5 /hpf (0-5) 04/04/25 14:07 Ur Squamous Epith Cells 0-5 /hpf (0-5) 04/04/25 14:07 Amorphous Sediment Not Reportable 04/04/25 14:07 Urine Bacteria 4+ /hpf (NONE) H 04/04/25 14:07 Hyaline Casts 0.40 /lpf 04/04/25 14:07 Vitals Last Vital Signs Temp 98.3 F 04/07/25 08:00 Pulse 71 04/07/25 08:00 Resp 16 04/07/25 08:00 BP 176/63 04/07/25 08:00 Pulse Ox 95 04/07/25 08:00 O2 Del Method Nasal Cannula 04/07/25 08:00 O2 Flow Rate 2 04/07/25 08:00 Discharge Plan Discharge Patient Disposition: Home Condition: Stable Prescriptions: New metoprolol tartrate 25 mg Tablet 12.5 mg PO BID@0900,2100 30 Days Qty: 30 0RF Eliquis 5 mg tablet 5 mg PO BID 30 Days Qty: 60 0RF cefdinir 300 mg capsule 300 mg PO BID 5 Days Qty: 10 0RF Continued atorvastatin 20 mg tablet 20 mg PO DAILY PreserVision AREDS [id number] capsule 1 cap PO BID aspirin [Adult Low Dose Aspirin] 81 mg tablet,delayed release (DR/EC) 81 mg PO DAILY Saccharomyces boulardii [Daily Probiotic (S. boulardii)] 250 mg capsule 250 mg PO BID biotin 5 mg capsule 5 mg PO DAILY pantoprazole 40 mg tablet,delayed release (DR/EC) 40 mg PO DAILY escitalopram oxalate 10 mg tablet 10 mg PO DAILY Discontinued olmesartan 40 mg tablet 40 mg PO DAILY Discharge Order = DC NOW: Discharge Order (Routine); Ordered 04/07/25 Ordered By: Dax Lopez Referrals: Pb Forbes MD [Physician, Neurology] - 04/22/25 10:00 am Arthur Reilly MD [Physician, Ear, Nose, Throat] - 04/14/25 4:45 pm Referral Note: nasal bone fracture Jami Reyes MD [Physician, Orthopedics] - 04/09/25 3:30 pm Kamran Ashton MD [Physician, Cardiology] - 04/15/25 1:00 pm Johnson,MATEUSZ Almonte [Primary Care Provider, Nurse Practitioner] - 04/11/25 10:00 am Discharge Diet: Cardiac Discharge Activity: Resume usual activity Patient Instructions: Metoprolol (By mouth) (Lopressor, Toprol XL), Cefdinir (By mouth) (Omnicef), Apixaban (By mouth) (Eliquis), A-fib (Atrial Fibrillation) (DC), Urinary Tract Infection in Women (GEN), Syncope (DC), Opioid Safety, Patient Portal & Vitaliy Instructions Activity Restrictions/Additional Instructions: - If you have any recurrent dizzy episodes please go to the emergency room - Please follow-up with cardiology - I have discharged on Eliquis for atrial fibrillation, if you develop any bloody or black stools please go to emergency room - If you have any significant falls go to emergency room - Follow-up with neurology - For nasal bone fracture please follow-up with Dr. Perry - Fourth finger dislocation follow-up with Dr. Navarrete Discharge Attestations Time Spent in Discharge Care*: greater than 30 min Quality Metrics Clinical Quality Measures [ Cerebrovascular Accident { Contraindication to Antithrombotic: None; antithrombotic prescribed; Contraindication to Anticoagulation: None; anticoagulation prescribed; Contraindication to Statin: None; Statin prescribed;}] Coding Level of Care Code 58734 Total time (in minutes) for Discharge: 45 Diagnoses Syncopal episodes R55 UTI (urinary tract infection) N39.0 Atrial fibrillation I48.91
[2025-04-07 12:00] VITALS: BP 153/71; BP 154/88; BP 168/90; PULSE 60; PULSE 65; PULSE 76; RESP 18; TEMP 36.5; O2SAT 93
[2025-04-07 13:54] VITALS: BP 172/85; PULSE 66; O2SAT 93
== END 2025-04-07 14:25 | disposition home or self-care (01) | DRG 690 ==
LOC: ER 08:22 → CSU 11:02
PROVIDERS: Internal Medicine; Admitting Provider Family Medicine; Emergency Provider Family Medicine; PCP Nurse Practitioner Family; Visit Provider Family Medicine
DX: N39.0 Urinary tract infection, site not specified (principal); I48.91 Unspecified atrial fibrillation; H81.10 Benign paroxysmal vertigo, unspecified ear; G70.00 Myasthenia gravis without (acute) exacerbation; H18.519 Endothelial corneal dystrophy, unspecified eye; S02.2XXA Fracture of nasal bones, initial encounter for closed fracture; W18.30XA Fall on same level, unspecified, initial encounter; S63.255A Unspecified dislocation of left ring finger, initial encounter; K44.9 Diaphragmatic hernia without obstruction or gangrene; Z79.82 Long term (current) use of aspirin
CPT/HCPCS: 36415; 70160; 70450; 70496; 70498; 71045; 71275; 72125; 73110; 73130; 80053; 80061; 81001; 83036; 83605; 83690; 83735; 84100; 84145; 84443; 84484; 85025; 87077; 87086; 87186; 93005; 93306; 94664; 96372; 96374; 96375; 96376; 97116; 97161; 97165; 97530; 97535; 99285; J0696; J0780; J1650; J2270; J2405; J2470; J2765; J7030; J9999

== ENCOUNTER → 2025-04-15 13:10 | Outpatient (BNVA) | payer MEDICARE, SELFPAY | PROVIDERS: PCP Nurse Practitioner Family; Visit Provider Internal Medicine Cardiovascular Disease | DX: I48.91 Unspecified atrial fibrillation (principal); I10 Essential (primary) hypertension; I70.0 Atherosclerosis of aorta; Z79.01 Long term (current) use of anticoagulants; Z79.82 Long term (current) use of aspirin | CPT/HCPCS: 93005; 99204 ==

== ENCOUNTER → 2025-04-22 10:05 | Outpatient (BNVA) | payer MEDICARE, SELFPAY | PROVIDERS: PCP Nurse Practitioner Family; Referring Provider Family Medicine; Visit Provider Psychiatry & Neurology Neurology | DX: R55 Syncope and collapse (principal); R42 Dizziness and giddiness | CPT/HCPCS: 99203 ==

== ENCOUNTER 2025-04-25 09:00 | Outpatient (CLI) | payer MEDICARE, SELFPAY ==
[2025-04-25 09:10] VITALS: BMI 34.2
--- NOTE | 2025-04-25 09:45 | NMCV_ITS ---
NM mj perf SPECT r/s* [id number] Adelaida Jain Age: 79 Gender: F : 1945 Exam Date: 04/25/2025 09:51 Ordering Phys: Kamran Ashton MD ([email or web address]) Technologist: MARIAM Patel Exam Location: [facility] Indications: cp STRESS TEST Please see separate stress test report in [facility] for full findings IMAGE PROTOCOL Rest/Stress 1 Lexiscan Day Radiopharmaceutical Dose (mCi) Administration Site Administered by Rest: Tc-99m 10.8 IV MARIAM Patel Sestamibi Stress:Tc-99m 32.7 IV MARIAM Garrison Sestamibi Rest: 25-Apr-2025 60 Discovery 630 Stress: 25-Apr-2025 30 Discovery 630 0.4mg Lexiscan. Images obtained in supine and prone position. SPECT RESULTS Technical Quality: Good Raw Data Analysis: Normal Image Corrections: No attenuation or motion correction applied Summed Stress Score: 2 Summed Rest Score: 0 Summed Difference Score: 2 PERFUSION FINDINGS A small area of moderately decreased resedate was noted in the apical lateral region with significant reversibility with polar plot. However with the blackout mapping, no significant reversibility was noted FUNCTIONAL RESULTS (calculated via Gated SPECT) Stress Image LV EF (%): 82 Stress EDV (mL):73 TID: 0.79 Stress ESV (mL):13 FUNCTIONAL FINDINGS: Segmental wall motion analysis revealing no gross wall motion abnormalities IMPRESSIONS 1. Myocardial perfusion imaging revealing a small area of reversible defect in the apical lateral region suggestive of ischemia in the distribution of the left circumflex artery. However because of the inconsistency, the reliability of this finding is questionable. Clinical correlation is recommended 2. Normal LV ejection fraction of 82% 3. LV wall motion analysis revealing no gross wall motion abnormalities. 4. Normal LV volume No similar previous studies are available for comparison Dr Ashely Garcia MD [facility] (Electronically Signed) Final Date: 25 April 2025 12:00 S
--- NOTE | 2025-04-25 09:45 | ECG_ITS ---
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 Interpretive Statements Lung unchanged pre/post procedure; Intraprocedure shortess of breath; Symptoms resoled by discharge PROCEDURE: At the baseline, the EKG revealed normal sinus rhythm with a poor R wave progression.. The baseline heart was 75 bpm with a blood pressue of 144/95 mm of Hg Lexiscan was infused over a period of 20 seconds. A total of 0.4 milligrams of Lexiscan was infused. The stress phase was continued for a total of 5 minutes. Heart rate at the end of the stress phase was 93 bpm with a blood pressure 153/93 mm of Hg. The EKG at the peak infusion revealed no significant changes. Sestamibi was injected 20 seconds after the Lexiscan infusion. Heart rate at the end of the recovery phase was 93 bpm with a blood pressure of 142/92 mm of Hg. CONCLUSION: 1. No significant EKG changes with the LexiScan infusion 2. No LexiScan induced chest pain or cardiac arrhythmia 3. Normal blood pressure and heart rate response 4. Sestamibi/sestamibi perfusion scan pending; see separate report. Electronically Signed On 04-29-2025 09:26:40 CDT by Ashely Garcia M.D. [email or web address]
[2025-04-25 10:34] VITALS: BP 142/92; PULSE 94
== END 2025-04-25 09:01 | disposition home or self-care (01) ==
PROVIDERS: PCP Nurse Practitioner Family; Visit Provider Internal Medicine Cardiovascular Disease
DX: R94.39 Abnormal result of other cardiovascular function study (principal)
CPT/HCPCS: 36415; 78452; 93017; 96374; A9500; J2785

== ENCOUNTER 2025-04-28 11:33 | Outpatient (CLI) | payer MEDICARE, SELFPAY ==
--- NOTE | 2025-04-28 09:30 | MR_ITS ---
WS: [id number] MRI BRAIN WITH HIGH-RESOLUTION IMAGING THROUGH THE INTERNAL AUDITORY CANALS WITHOUT AND WITH CONTRAST HISTORY: R55 - Syncope and collapse COMPARISON: 07/06/2021 TECHNIQUE: Multiplanar, multisequence imaging is performed through the brain. Additional 3 mm imaging performed in multiple planes through the internal auditory canal. Postcontrast imaging with 18 ml's of MultiHance. No acute intracranial hemorrhage, midline shift, edema or mass effect. Minimal small vessel changes. Mild cerebral and cerebellar atrophy. No large territory infarct. Normal hippocampal formations. Ventricles and extra-axial spaces are normal. No inferior displacement of cerebellar tonsils. Clivus and pituitary gland are normal. Internal and external auditory canals: Unremarkable. Cranial nerves VII and VIII complexes: Unremarkable. No enhancement or mass. Cerebellopontine angles: Normal. Paranasal sinuses: Normal. Mastoid air cells: New bilateral mastoid air cell effusions, RIGHT greater than LEFT. Calvarium and scalp: Normal. Visualized [place] and dural venous sinuses demonstrate no abnormality. MR/MR iac's wo/w con* [id number] IMPRESSION: 1. No acute infarcts or hemorrhage. 2. Very mild atrophy and small vessel disease with no prior infarcts. 3. New bilateral mastoid air cell effusions, RIGHT greater than LEFT. 4. No mass or signal abnormality at the cerebellopontine angles or IACs.
[2025-04-28] MEDS: gadobenate dimeglumine 20 mL vial IV (12:27)
== END 2025-04-28 11:34 | disposition home or self-care (01) ==
LOC: RAD 11:34
PROVIDERS: PCP Nurse Practitioner Family; Visit Provider Psychiatry & Neurology Neurology
DX: R55 Syncope and collapse (principal); I67.89 Other cerebrovascular disease
CPT/HCPCS: 70553

== ENCOUNTER 2025-05-09 10:38 | Outpatient (CLI) | payer MEDICARE, SELFPAY ==
[2025-05-09 10:56] LABS: Hematocrit 38.1 % (36-47); Hemoglobin 12.40 g/dL (11.27-16.99); Mean Corpuscular HGB Conc 32.5 g/dL (30-55); Mean Corpuscular Hemoglobin 30.2 pg (27-33); Mean Corpuscular Volume 92.7 fl (85-98); Nucleated Red Blood Cells % 0 %; Platelet Count 247 10^3/cmm (157-399); Red Blood Count 4.11 10^6/uL (3.85-5.65); White Blood Count 5.42 10^3/uL (3.29-11.43)
[2025-05-09 11:08] LABS: INR 1.09 (0.83-1.21)
[2025-05-09 11:24] LABS: Anion Gap 13.7 (5-19); Blood Urea Nitrogen 17 mg/dL (8-23); Calcium 9.0 mg/dL (8.5-10.5); Carbon Dioxide 29 mmol/L (22-29); Chloride 105 mmol/L (98-107); Glucose 89 mg/dL (65-115); Osmolality Calculated 297 mOsm/kg (285-295); Potassium 4.7 mmol/L (3.5-5.1); Sodium 143 mmol/L (136-145)
== END 2025-05-09 10:39 | disposition home or self-care (01) ==
PROVIDERS: PCP Nurse Practitioner Family; Visit Provider Internal Medicine Cardiovascular Disease
DX: I10 Essential (primary) hypertension (principal); I48.91 Unspecified atrial fibrillation; R55 Syncope and collapse; R58 Hemorrhage, not elsewhere classified
CPT/HCPCS: 80048; 85025; 85610

== ENCOUNTER → 2025-05-23 08:55 | Outpatient (BNVA) | payer MEDICARE, SELFPAY | PROVIDERS: PCP Nurse Practitioner Family; Referring Provider Psychiatry & Neurology Neurology; Visit Provider Specialist | DX: R55 Syncope and collapse (principal) | CPT/HCPCS: 95816 ==

== ENCOUNTER 2025-05-28 07:30 | Outpatient (CLI) | payer MEDICARE, SELFPAY ==
[2025-05-28] VITALS (18 sets, daily range): BP systolic 124–193; BP diastolic 57–94; PULSE 62–70; RESP 14–23; TEMP 36.7; O2SAT 90–94; BMI 35.3
--- NOTE | 2025-05-28 07:30 | XACV_ITS ---
Exam Room: 2 Ht: 152 cm Wt: 82 kg BSA: 1.90 m2 Gender: Female : 1945 Any Known Allergies: No known allergies Exam Priority: Routine Procedure(s): Procedure Description: Diagnostic procedure [id number], Alvarez; Diagnostic Cath Status: Elective Diagnostic Findings * No disease noted in the Left Main, Left Anterior Descending, Right, or Circumflex coronary arteries. * Coronary angiography shows right dominance. Conclusions 1. No disease noted in the Left Main, Left Anterior Descending, Right, or Circumflex coronary arteries. 2. Normal left ventricular systolic function. Ejection fraction of 65%. Recommendations * Continue current medical management and risk factor modification. Ventriculography Ejection Fraction: 65.0 % Pressures Phase:Rest AO : 158 / 84 ( 114 ) @ 11:39:00 AM 133 / 76 ( 101 ) @ 11:40:00 AM 156 / 80 ( 114 ) @ 11:50:00 AM 158 / 80 ( 115 ) @ 11:50:00 AM LV : 160 / 0 / 22 @ 11:49:00 AM 156 / 0 / 20 @ 11:50:00 AM 155 / -1 / 20 @ 11:50:00 AM Valves Phase:DefaultPhase AV : 0.0 @ 10:55:52 AM AV Mean Gradient: 0.0 @ 10:55:52 AM Clinical Evaluation EBL: 5mL-10mL Procedural Details Procedure Consent Obtained. Pre-Procedure Time Out. Identified patient by full name and date of as verbalized by the patient/guarantor. Does the consent match the physician's order: Yes. Accurate & Complete Informed Consent: Yes. Inpatient/Outpatient History & Physical on Chart: Yes. If H&P is completed, is and addenduem needed: No; If yes, is the addendum complete: N/A. Visualize and Verify Site with Patient/Guarantor: N/A. Relevant Radiology Images available: Yes. Pre-op teaching completed and patient verbalized understanding. The risks, benefits, and alternatives of sedation and/or procedure were discussed by physician. The patient agrees to continue. Procedure started. Current Diagnosis : Chest Pain. [facility] Clinical Fraility Score: 3: Managing Well. Molder Inflated Ball Indications: Worsening Angina. Chest Pain Symptom Assessment: Typical Angina Symptoms. Current diagnosis: Chest Pain. PERRLA. Strong, equal hand deicer repairer electric bilaterally. Lungs clear x 5 lobes. IV Site on Arrival: 20 gauge in the right forearm. IV Fluids: 0.9% NaCl at KVO. 0 mL infused prior to research laboratory specialist. Pre Procedural Pulses: bilateral dorsalis pedis was 1+. Pre Procedural Pulses: bilateral posterior tibial was 1+. Pre Procedural Pulses: bilateral radial was 2+. Oxygen started at 2liters/min via nasal canula. right groin was prepped with chloroprep then draped in the usual sterile fashion. Baseline sample Acquired. HR: 56 BPM. right radial was prepped with chloroprep then draped in the usual sterile fashion. Physician arrived. Physician scrubbed in. Immediate Pre-Procedure Time Out. Correct Patient: Yes; Correct Procedure: Yes; Correct Site: Yes; Correct Patient Position: Yes; Correct Supplies: Yes; Dried Flammable Prep: Yes; Blood Products Available: N/A;. Lidocaine 1% infiltrated to the right radial. Arterial access obtained. A 5 sw[place]ish TIG catheter in over wire. Multiple views taken of left coronary artery. Catheter redirected to the RCA. Multiple views taken of right coronary artery. Catheter removed over the exchange wire. A 5 sw[place]ish Angled Pig catheter in over wire. EDP Sample taken: LV 160/-1,22; HR: 69 BPM; SpO2: 97%. LV gram performed in HANKS @ 10 mL/second for a total of 30 mL. EDP Sample taken: LV 156/-1,20; HR: 76 BPM; SpO2: 98%. Pullback taken: LV 155/-2,20; AO 156/80(114); Mean: 0mmHg, Peak to Peak: 0mmHg, SEP: 6sec/min; HR: 72 BPM; SpO2: 98%. Catheter removed over the exchange wire. Physician scrubbed out. Vital chart was stopped. A TR Band was successful obtaining hemostatsis at the Right Radial artery insertion site. Post Procedure: Pulses reassessed and unchanged. PERRLA. Strong, equal hand deicer repairer electric bilaterally. No VTE prophylaxis required. Medication's Wasted: Lidocaine 1% = 18 mL. Medication's Wasted: Nitro = 49.8 mcg. Medication's Wasted: Heparin = 1000 units. Medication's Wasted: Other = Fentanyl 25mcg Versed 1 mg. Total IV fluids: 25 mL. Post-op diagnosis: Non-obstructive CAD. Complications: None. Estimated blood loss: 5mL-10mL. Responsiveness - Normal response to verbal stimuli; alert and oriented, PERRLA. Airway - Unaffected, no intervention required; spontaneous ventilation. Circulation: W/N/L, pulses unchanged. Nausea/Vomiting: No. Procedure completed. Patient transferred by wheelchair to CPRU. Access Site Site: Right Radial artery Sheath Size: 6 Fr Hemostasis Method: TR Band Hemostasis Success: Successful Procedure Medications Start: 10:23 AM Stop: 10:23 AM Medication: Versed Amount: 1 mg Route: I.V. Start: 10:23 AM Stop: 10:23 AM Medication: Fentanyl Amount: 50 mcg Route: I.V. Start: 10:31 AM Stop: 10:31 AM Medication: Versed Amount: 1 mg Route: I.V. Start: 10:35 AM Stop: 10:35 AM Medication: Nitrogylcerin Amount: 200 mcg Route: I.A. Start: 10:38 AM Stop: 10:38 AM Medication: Heparin Amount: 5000 units Route: I.V. Start: 10:44 AM Stop: 10:44 AM Medication: Fentanyl Amount: 25 mcg Route: I.V. I, the attending physician, have reviewed and verified all procedure medications. Yes, all medications given per verbal order History/Risk Factors Hypertension: Yes Dyslipidemia: Yes Peripheral Arterial Disease (PAD): No Myocardial Infarction (CT): No Obesity: No Renal Disease: No Tobacco Use: Never Prior Interventions PCI: No CABG: No Valve Surgery: No Report Signatures Finalized by Shaka Alvarez MD on 06/08/2025 04:47 PM
--- NOTE | 2025-05-28 10:21 | W.PM.OPSFHP ---
Same Day Surgery H&P Indication for Procedure/HPI DATE OF PROCEDURE: May 28, 2025 CHIEF COMPLAINT/INDICATIONFOR SURGICAL PROCEDURE: Abnormal stress test Chest pain Shortness of 79-year-old female past medical history significant for hypertension hyperlipidemia atrial fibrillation on anticoagulation for worsening of shortness of breath chest pressure underwent stress test which turns out to be abnormal. Since patient continued to have symptoms despite of optimization medicine it is the reason she has been referred to us for left heart catheterization/PCI if indicated. PREOP DIAGNOSIS: Abnormal stress, chest pain PLANNED PROCEDURE: Patient has been explained all risk-benefit and alternative for the procedure. Patient has time 2% risk of stroke major bleed. Patient restand 5% risk of minor bleeding bruising infection hematoma pseudoaneurysm vascular or cardiac surgery urgent or emergent. She agrees to it and would like to proceed with it Operation Date: 05/28/25 08:30 Proposed Procedures p Cardiac Catheterization - C w/wo LV & coros(Left) - Shaka Alvarez MD As above Medications/Allergies* Home Medications ?Medication ?Instructions ?Recorded ?Confirmed ?Type aspirin 81 mg tablet,delayed 81 mg PO DAILY 06/22/21 05/26/25 History release (Adult Low Dose Aspirin) biotin 5 mg capsule 5 mg PO DAILY 06/22/21 05/26/25 History vitamins A,C,T-twoq-xsrivc 4,296 1 cap PO BID 06/22/21 05/26/25 History mcg-226 mg-90 mg capsule (PreserVision AREDS) escitalopram oxalate 10 mg tablet 10 mg PO DAILY 04/04/25 05/26/25 History pantoprazole 40 mg tablet,delayed 40 mg PO DAILY 04/04/25 05/26/25 History release Saccharomyces boulardii 250 mg 250 mg PO DAILY 04/15/25 05/26/25 History capsule (Daily Probiotic (S. boulardii)) apixaban 5 mg tablet (Eliquis) 5 mg PO BID 05/26/25 05/28/25 History Allergies/Adverse Reactions Allergy/AdvReac Type Severity Reaction Status Date / Time No Known Allergies Allergy Verified 04/22/25 10:22 Current Medications: Generic Name Dose Route Start Last Admin Trade Name Freq PRN Reason Stop Dose Admin Sodium Chloride 1,000 mls @ 50 mls/hr 05/28/25 07:30 05/28/25 08:20 Sodium Chloride 0.9% IV 05/29/25 03:29 Not Given .Q20H ONE Pertinent History/Comorbid Conditions* Medical History (Updated 04/15/25 @ 14:12 by Kamran Ashton MD) History of myasthenia gravis Surgical History (Updated 04/04/25 @ 12:35 by Dax Lopez MD) Corneal transplant status Social History Smoking and tobacco/nicotine status: never used tobacco/nicotine Alcohol intake: never Substance/Drug Use: never Pertinent Exam Findings alert, oriented x 3, clear to auscultation bilaterally and regular rate & rhythm Conscious Sedation Assessment PATIENT ASSESSED PRIOR TO SEDATION, WITH NO CHANGE NOTED: Yes AIRWAY EVAL/ANESTHESIA PLAN: ASA II, Risks, benefits & alternatives of sedation and/or procedure discussed and Patient agrees to continue as planned Recommendations Risks and benefits of procedure reviewed and Patient/family agree to proceed Surgery/Procedure today Coding Level of Care Code Acute Code for Chg Fwd
--- NOTE | 2025-05-28 11:00 | PC.NURSE ---
Pt arrived to CPRU 4 post cath recovery. Pt alert and oriented. Breathing even and non-labored on room air. Denies pain. TR band to right radial. Site asymptomatic. No signs of bleeding or hematoma. Radial pulse palpable. Placed on bedside athletic monitor. Family member at bedside, call light in reach.
--- NOTE | 2025-05-28 13:41 | PC.NURSE ---
TR band removal note Started releasing air from right radial TR band at 1215. 1-2ml released every 5-15 minutes per protocol. TR band deflated at 1330. No bleeding concerns or signs of hematoma. Radial pulse palpable. Large Band aid applied over site.
== END 2025-05-28 15:02 | disposition home or self-care (01) ==
PROVIDERS: PCP Nurse Practitioner Family; Visit Provider Internal Medicine Cardiovascular Disease
DX: R07.9 Chest pain, unspecified (principal); R94.39 Abnormal result of other cardiovascular function study; R06.02 Shortness of breath; I10 Essential (primary) hypertension; E78.5 Hyperlipidemia, unspecified; I48.91 Unspecified atrial fibrillation; Z79.01 Long term (current) use of anticoagulants; Z79.82 Long term (current) use of aspirin; K21.9 Gastro-esophageal reflux disease without esophagitis
CPT/HCPCS: 36415; 93458; 99152; 99153; C1769; C1887; C1894; J1644; J2250; J3010; J3490; J7030; J9999; Q0163; Q9967

== ENCOUNTER → 2025-06-10 09:53 | Outpatient (BNVA) | payer MEDICARE, SELFPAY | PROVIDERS: PCP Nurse Practitioner Family; Visit Provider Internal Medicine Cardiovascular Disease | DX: I48.0 Paroxysmal atrial fibrillation (principal); Z79.01 Long term (current) use of anticoagulants; Z79.82 Long term (current) use of aspirin; R55 Syncope and collapse; I10 Essential (primary) hypertension; E78.5 Hyperlipidemia, unspecified; R53.83 Other fatigue | CPT/HCPCS: 99214 ==

== ENCOUNTER → 2025-09-01 09:11 | Outpatient (BNVA) | payer MEDICARE, SELFPAY | PROVIDERS: PCP Nurse Practitioner Family; Visit Provider Internal Medicine Cardiovascular Disease | DX: I48.0 Paroxysmal atrial fibrillation (principal); Z79.01 Long term (current) use of anticoagulants; Z79.82 Long term (current) use of aspirin; I10 Essential (primary) hypertension; E78.5 Hyperlipidemia, unspecified; G47.30 Sleep apnea, unspecified | CPT/HCPCS: 99214 ==